=== PATIENT | male | born 1930 | race Caucasian/White ===

== ENCOUNTER 2016-11-28 19:48 | Inpatient (IN) | payer MEDICARE, MEDICAID ==
[~2016-11-28] VITALS: Ht 175.3 cm; Wt 89.8 kg
--- NOTE | 2016-11-28 19:51 | NUR ---
BB AMBULANCE FROM [facility]; [facility] AT FACILITY. PT CONGESTED ON 2LPM VIA NC . DENIES ANY PAIN. PLACED ON MONITOR. VSS.
--- NOTE | 2016-11-28 20:30 | NUR ---
LAB COLLECTED BLOOD SAMPLE SENT TO LAB.
--- NOTE | 2016-11-28 20:41 | NUR ---
URINE SAMPLE COLLECTED SENT TO LAB.
[2016-11-28 20:50] LABS: BASOPHILS % (AUTO) 0.4 % (0.0-2.0); EOSINOPHILS # (AUTO) 0.2 /CMM (0.0-0.7); EOSINOPHILS % (AUTO) 3.1 % (0.0-6.0); HEMATOCRIT 35 % (39-51); HEMOGLOBIN 11.6 g/dL (13.5-17.5); LYMPHOCYTES # (AUTO) 1.5 /CMM (0.8-4.8); LYMPHOCYTES % (AUTO) 25.9 % (20.0-44.0); MEAN CORPUSCULAR HEMOGLOBIN 31 PG (26.0-33.0); MEAN CORPUSCULAR HGB CONC 33 g/dl (31.0-36.0); MEAN CORPUSCULAR VOLUME 93 fL (80-96); MONOCYTES # (AUTO) 0.7 /CMM (0.1-1.30); NEUTROPHILS # (AUTO) 3.3 /CMM (1.8-8.9); NEUTROPHILS % (AUTO) 58.6 % (43.0-81.0); PLATELET COUNT (AUTO) 258 /CMM (150-450); RDW COEFFICIENT OF VARIATION 14.8 (11.5-15.0); RED BLOOD CELL COUNT(AUTO) 3.76 MIL/uL (4.5-6.0); WHITE BLOOD COUNT (AUTO) 5.7 K/uL (4.3-11.0)
[2016-11-28 20:58] LABS: CREATININE 1.1 mg/dL (0.6-1.3)
--- NOTE | 2016-11-28 21:00 | NUR ---
PINKY AT BEDSIDE FOR EVAL
[2016-11-28 21:04] LABS: ALBUMIN 3.1 g/dL (3.4-5.0); BILIRUBIN,TOTAL 0.2 mg/dL (0.2-1.0); TOTAL PROTEIN, SERUM 6.9 g/dL (6.4-8.2)
[2016-11-28 21:05] LABS: SALICYLATE 1.2 mg/dL (2.8-20.0)
[2016-11-28 21:27] LABS: APPEARANCE,URINE CLEAR (CLEAR); BILIRUBIN,URINE NEGATIVE (NEGATIVE); BLOOD, URINE NEGATIVE Ery/uL (NEGATIVE); COLOR,URINE YELLOW (YELLOW); KETONES,URINE NEGATIVE (NEGATIVE); LEUKOCYTE ESTERASE ,URINE NEGATIVE (NEGATIVE); NITRITE, URINE NEGATIVE (NEGATIVE); PH,URINE 5.5 (5.0-8.0); PROTEIN,URINE NEGATIVE (NEGATIVE); UGLUCOSE 3+ mg/dL (NEGATIVE); UROBILINOGEN,URINE 0.2 EU/dL (0.2)
[2016-11-28 21:30] LABS: ADD URINE CULTURE NO; BACTERIA,URINE None seen /HPF (None Seen); RBC,URINE 0-2 /HPF (0-2); SQUAMOUS EPITHELIAL CELL,UR Rare /HPF (None Seen); WBC,URINE 0-2 /HPF (0-3)
[2016-11-28 21:45] LABS: CANNABINOID, URINE NEGATIVE (NEGATIVE); PHENCYCLIDINE SCREEN,URINE NEGATIVE (NEGATIVE)
--- NOTE | 2016-11-28 21:45 | NUR ---
GAVE REPORT TO LUCRETIA COX PT GOING TO ROOM 213B
--- NOTE | 2016-11-28 22:21 | NUR ---
CALLED RT FOR BREATHING TREATMENT
[2016-11-28] MEDS ORDERED: ALBUTEROL FS 2.5 MG/0.5 ML VIAL.NEB NEB PRN (22:30)
--- NOTE | 2016-11-28 22:40 | NUR ---
XRAY AT BEDSIDE
--- NOTE | 2016-11-28 23:07 | NUR ---
REMOVE 5 LPM VIA MASK. PLACED ON ROOM AIR SATING 98%
[2016-11-29 02:00] VITALS: BP 140/73
[2016-11-29] MEDS ORDERED: ACETAMINOPHEN 325 MG TABLET PO PRN (02:00)
[2016-11-29] MEDS ORDERED: TEMAZEPAM 7.5 MG CAPSULE PO PRN (02:00)
[2016-11-29] MEDS ORDERED: LORAZEPAM 0.5 MG TABLET PO PRN (02:00)
[2016-11-29] MEDS ORDERED: MAG HYDROX/AL HYDROX/SIMETH 30 ML UDC PO PRN (02:00)
[2016-11-29] MEDS ORDERED: MAGNESIUM HYDROXIDE 30 ML UDC PO PRN (02:00)
--- NOTE | 2016-11-29 02:10 | NUR ---
ADMITTED THIS 86 Y/O MALE FROM [facility]. PT IS ON 5150 HOLD FOR GRAVELY DISABLED. PER HOLD, PATIENT STATED "I DON'T KNOW WHY I'M HERE THEY BROUGHT ME HERE". ACCORDING TO STAFF AT THE FACILITY. PATIENT HAS BEEN HYPERSEXUAL ATTEMPTED TO TOUCH STAFF INAPPROPRIATELY. WHEN STAFF INTERVENED. PATIENT BECAME PHYSICALLY AGGRESSIVE TOWARDS THEM AND UNABLE TO REDIRECT. PT UNDER DR. GAMBOA FOR PSYCH AND DR. PASTRANA FOR MEDICAL. ADMITTING DX. OF PSYCHOSIS AND MEDICAL DX. OF HTN, DM TYPE 2, GLAUCOMA, GOUT, HYPERLIPIDEMIA. UPON FACE TO FACE EVALUATION, PATIENT IS ALERT AND ORIENTED X 1, CONFUSED, DISORIENTED, DISORGANIZED. PT REFUSED TO SIGN CONSENTS FORM. SKIN/BODY ASSESSMENT DONE. NOTED ABDOMEN BRUISE, RIGHT LEG SCAB. PICTURE TAKEN, BELONGINGS CHECKED FOR CONTRABAND. NO CONTRABAND FOUND. BED IN LOW AND LOCKED POSITION, SIDERAILS UP X2, BED ALARM ON. WILL CONTINUE TO MONITOR FOR SAFETY AND BEHAVIOR [id number].
[2016-11-29 03:25] VITALS: BP 140/73
[2016-11-29] MEDS ORDERED: DONE10TA4 PO (06:30)
[2016-11-29] MEDS ORDERED: ATOR10TA PO (06:30)
[2016-11-29] MEDS ORDERED: ASPI-991 PO (06:30)
[2016-11-29] MEDS ORDERED: BRIM5DRO11 EACHEYE (06:30)
[2016-11-29] MEDS ORDERED: DOXA4TAB2 PO (06:30)
[2016-11-29] MEDS ORDERED: DOCU-170 PO (06:30)
[2016-11-29] MEDS ORDERED: PIOG45TA PO (06:30)
[2016-11-29] MEDS ORDERED: BENA20TA78 PO (06:30)
[2016-11-29] MEDS ORDERED: ALLO100T56 PO (06:30)
[2016-11-29] MEDS ORDERED: TIMO5DRO4 RIGHTEYE (06:30)
[2016-11-29] MEDS ORDERED: DORZ10DR11 EACHEYE (06:30)
[2016-11-29] MEDS ORDERED: GLYB5TAB7 PO (06:30)
[2016-11-29] MEDS ORDERED: INSU3INS6 SUBCUT (06:30)
[2016-11-29] MEDS ORDERED: HYDR12.55 PO (06:30)
[2016-11-29] MEDS ORDERED: SITA100T PO (06:30)
[2016-11-29] MEDS ORDERED: LATA2.5D2 EACHEYE (06:30)
[2016-11-29 08:00] VITALS: BP 145/63
--- NOTE | 2016-11-29 12:10 | NUR ---
GPS CUT OFF SAW OPERATOR PIPE BLANKS: MD VISIT SEEN BY DR. DE LA VEGA AT THIS TIME WITH VERBAL ORDER TO DO ACCU CHECK WITH MILD SS. ORDER CARRIED OUT AND ACKNOWLEDGED. PT HAVING LUNCH AT THIS TIME. WILL CONTINUE TO MONITOR. REMINDED DR. DE LA VEGA RE: HOME MEDS NEEDS TO BE RECONCILED.
[2016-11-29] MEDS ORDERED: DEXTROSE 50%-WATER 50 ML DISP.SYRIN IV PRN (12:30)
--- NOTE | 2016-11-29 13:34 | NUR ---
RN-CO: NOTIFIED DR CEFERINO BARTLETT TO RECONCILE HOME MEDS. DR DE LA VEGA STATED "YES".
--- NOTE | 2016-11-29 14:44 | NUR ---
Initial Discharge Plan: Patient was currently residing at [facility] [place] [address]. . SW spoke to Yoandy from the facility who stated that the facility is cautious about having the patient return because of his hyper-sexual behavior. Patient will possibly need placement. SW attempted to contact patient's family however, they were unavailable. MARC left a message with her contact information. SW will attempt again later. MARC will follow-up with MD and family regarding most appropriate discharge and will help form a safe and proper discharge.
--- NOTE | 2016-11-29 15:30 | NUR ---
gps radiography technician: notes still awaiting for dr. edmondson to reconcile the home meds. f/u made to dr. edomndson, left message via voice mail. will continue to monitor.
[2016-11-29 16:02] VITALS: BP 132/54
[2016-11-29] MEDS: TIMOLOL MAL/DORZOLAM HCL OPHTH 10 ML BOTTLE EACHEYE SCH (16:58)
[2016-11-29] MEDS ORDERED: TIMOLOL 0.5% SOLN OPHTH 5 ML BOTTLE RIGHTEYE SCH (17:00)
[2016-11-29] MEDS: BENAZEPRIL HCL 20 MG TABLET PO SCH (17:00)
[2016-11-29] MEDS: ALLOPURINOL 100 MG TABLET PO SCH (17:00)
[2016-11-29] MEDS: TIMOLOL 0.5% SOLN OPHTH 5 ML BOTTLE EACHEYE SCH (17:01)
[2016-11-29] MEDS: BLOOD SUGAR DIAGNOSTIC 1 EACH STRIP IN SCH ×2 (17:01→22:13)
[2016-11-29] MEDS: INSULIN REGULAR, HUMAN 100 UNIT/ML 3 ML VIAL SQ PRN ×2 (17:04→22:16)
[2016-11-29] MEDS: BRIMONIDINE TARTRATE OPHT SOLN 5 ML BOTTLE OP SCH (17:05)
[2016-11-29 20:00] VITALS: BP 133/77
[2016-11-29] MEDS: DIVALPROEX SODIUM 250 MG TABLET.DR PO SCH (21:35)
[2016-11-29] MEDS: LATANOPROST EYE DROP 0.005% 2.5 ML BOTTLE EACHEYE SCH (22:13)
[2016-11-29] MEDS: DONEPEZIL 5 MG TABLET PO SCH (22:13)
[2016-11-29] MEDS: ATORVASTATIN 10 MG TABLET PO SCH (22:13)
[2016-11-29] MEDS: INSULIN DETEMIR 100 UNIT/ML CARTRIDGE SQ SCH (22:14)
[2016-11-29] MEDS: QUETIAPINE FUMARATE 25 MG TABLET PO SCH (22:14)
[2016-11-30] MEDS: ALBUTEROL FS 2.5 MG/0.5 ML VIAL.NEB NEB PRN ×3 (00:33→22:00)
[2016-11-30 07:38] LABS: BASOPHILS % (AUTO) 0.3 % (0.0-2.0); EOSINOPHILS # (AUTO) 0.2 /CMM (0.0-0.7); EOSINOPHILS % (AUTO) 2.7 % (0.0-6.0); HEMATOCRIT 34 % (39-51); HEMOGLOBIN 11.3 g/dL (13.5-17.5); LYMPHOCYTES # (AUTO) 1.9 /CMM (0.8-4.8); LYMPHOCYTES % (AUTO) 25.9 % (20.0-44.0); MEAN CORPUSCULAR HEMOGLOBIN 31 PG (26.0-33.0); MEAN CORPUSCULAR HGB CONC 33 g/dl (31.0-36.0); MEAN CORPUSCULAR VOLUME 93 fL (80-96); MONOCYTES # (AUTO) 0.8 /CMM (0.1-1.30); NEUTROPHILS # (AUTO) 4.4 /CMM (1.8-8.9); NEUTROPHILS % (AUTO) 60.1 % (43.0-81.0); PLATELET COUNT (AUTO) 264 /CMM (150-450); RDW COEFFICIENT OF VARIATION 14.9 (11.5-15.0); WHITE BLOOD COUNT (AUTO) 7.4 K/uL (4.3-11.0)
[2016-11-30] MEDS: BLOOD SUGAR DIAGNOSTIC 1 EACH STRIP IN SCH ×4 (07:44→21:31)
[2016-11-30 07:55] VITALS: BP 135/60
[2016-11-30 08:09] LABS: ALBUMIN 2.9 g/dL (3.4-5.0); BILIRUBIN,TOTAL 0.3 mg/dL (0.2-1.0); POTASSIUM 3.8 mmol/L (3.5-5.1); TOTAL PROTEIN, SERUM 6.7 g/dL (6.4-8.2)
[2016-11-30] MEDS: PIOGLITAZONE HCL 15 MG TABLET PO SCH (08:50)
[2016-11-30] MEDS: DOCUSATE SODIUM 100 MG CAPSULE PO SCH (08:50)
[2016-11-30] MEDS: BENAZEPRIL HCL 20 MG TABLET PO SCH ×2 (08:51→17:57)
[2016-11-30] MEDS: HYDROCHLOROTHIAZIDE 25 MG TABLET PO SCH (08:51)
[2016-11-30] MEDS: LINAGLIPTIN 5 MG TABLET PO SCH (08:52)
[2016-11-30] MEDS: ALLOPURINOL 100 MG TABLET PO SCH ×2 (08:52→17:57)
[2016-11-30] MEDS: DOXAZOSIN MESYLATE (4 MG) 4 MG TABLET PO SCH (08:52)
[2016-11-30] MEDS: DIVALPROEX SODIUM 250 MG TABLET.DR PO SCH ×2 (08:52→21:27)
[2016-11-30] MEDS: glyBURIDE 5 MG TABLET PO SCH (08:52)
[2016-11-30] MEDS: BRIMONIDINE TARTRATE OPHT SOLN 5 ML BOTTLE OP SCH ×2 (09:01→17:59)
[2016-11-30] MEDS: TIMOLOL MAL/DORZOLAM HCL OPHTH 10 ML BOTTLE EACHEYE SCH ×2 (09:01→17:59)
[2016-11-30] MEDS: TIMOLOL 0.5% SOLN OPHTH 5 ML BOTTLE EACHEYE SCH ×2 (09:01→17:59)
[2016-11-30] MEDS: INSULIN REGULAR, HUMAN 100 UNIT/ML 3 ML VIAL SQ PRN ×3 (09:03→21:33)
[2016-11-30] MEDS: ASPIRIN EC 81 MG TABLET.DR PO SCH (09:06)
--- NOTE | 2016-11-30 10:50 | NUR ---
DR. DE LA VEGA CAME AND EXAMINED THE PT. WITH ORDERS OF ABG, CT ANGIOGRAM WITH CONTRAST, ECHOCARDIOGRAM AND O2.
--- NOTE | 2016-11-30 11:33 | NUR ---
I, DAVIN MUKHERJEE, TRIED TO TALK TO RN BUT SHE WAS NOT AVAILABLE. I WAS TOLD NURSE WILL CALL BACK REGARDING THE CT PULMONARY ANGIO.
[2016-11-30] MEDS ORDERED: IOHEXOL-350 100 ML VIAL IV ONE (15:51)
[2016-11-30] MEDS ORDERED: CT SWABBABLE VALVE TRANS SET 1 EA INFUS.SET MC ONE (15:51)
[2016-11-30] MEDS ORDERED: IV NS 0.9% 250 ML IV ONE (15:51)
[2016-11-30 16:03] VITALS: BP 117/51
[2016-11-30 20:00] VITALS: BP 130/61
[2016-11-30] MEDS: QUETIAPINE FUMARATE 25 MG TABLET PO SCH (21:29)
[2016-11-30] MEDS: ATORVASTATIN 10 MG TABLET PO SCH (21:29)
[2016-11-30] MEDS: LATANOPROST EYE DROP 0.005% 2.5 ML BOTTLE EACHEYE SCH (21:29)
[2016-11-30] MEDS: DONEPEZIL 5 MG TABLET PO SCH (21:29)
[2016-11-30] MEDS: INSULIN DETEMIR 100 UNIT/ML CARTRIDGE SQ SCH (21:32)
[2016-12-01 08:00] VITALS: BP 120/61
[2016-12-01] MEDS: glyBURIDE 5 MG TABLET PO SCH (08:48)
[2016-12-01] MEDS: DIVALPROEX SODIUM 250 MG TABLET.DR PO SCH ×2 (08:48→20:37)
[2016-12-01] MEDS: DOXAZOSIN MESYLATE (4 MG) 4 MG TABLET PO SCH (08:50)
[2016-12-01] MEDS: ASPIRIN EC 81 MG TABLET.DR PO SCH (08:50)
[2016-12-01] MEDS: ALLOPURINOL 100 MG TABLET PO SCH ×2 (08:50→16:39)
[2016-12-01] MEDS: DOCUSATE SODIUM 100 MG CAPSULE PO SCH (08:51)
[2016-12-01] MEDS: HYDROCHLOROTHIAZIDE 25 MG TABLET PO SCH (08:51)
[2016-12-01] MEDS: PIOGLITAZONE HCL 15 MG TABLET PO SCH (08:52)
[2016-12-01] MEDS: BENAZEPRIL HCL 20 MG TABLET PO SCH ×2 (08:52→16:40)
[2016-12-01] MEDS: LINAGLIPTIN 5 MG TABLET PO SCH (08:52)
[2016-12-01] MEDS: BLOOD SUGAR DIAGNOSTIC 1 EACH STRIP IN SCH ×4 (08:55→21:18)
[2016-12-01] MEDS: TIMOLOL MAL/DORZOLAM HCL OPHTH 10 ML BOTTLE EACHEYE SCH ×2 (08:56→16:41)
[2016-12-01] MEDS: BRIMONIDINE TARTRATE OPHT SOLN 5 ML BOTTLE OP SCH ×2 (08:56→16:41)
[2016-12-01] MEDS: TIMOLOL 0.5% SOLN OPHTH 5 ML BOTTLE EACHEYE SCH ×2 (08:57→16:41)
[2016-12-01] MEDS: INSULIN REGULAR, HUMAN 100 UNIT/ML 3 ML VIAL SQ PRN ×3 (12:15→21:26)
[2016-12-01 16:22] VITALS: BP 126/62
[2016-12-01 19:48] VITALS: BP 119/50
[2016-12-01] MEDS: DONEPEZIL 5 MG TABLET PO SCH (21:19)
[2016-12-01] MEDS: ATORVASTATIN 10 MG TABLET PO SCH (21:19)
[2016-12-01] MEDS: LATANOPROST EYE DROP 0.005% 2.5 ML BOTTLE EACHEYE SCH (21:19)
[2016-12-01] MEDS: QUETIAPINE FUMARATE 25 MG TABLET PO SCH (21:20)
--- NOTE | 2016-12-01 21:27 | NUR ---
GPS/RN NOTE: ACCUCHECK 187 MG/DL, 3 UNITS REG. INSULIN SC ADMINISTERED. APPLE SAUCE GIVEN.
[2016-12-01] MEDS: INSULIN DETEMIR 100 UNIT/ML CARTRIDGE SQ SCH (21:37)
[2016-12-02 08:00] VITALS: BP 138/70
[2016-12-02] MEDS: DOCUSATE SODIUM 100 MG CAPSULE PO SCH (09:10)
[2016-12-02] MEDS: BLOOD SUGAR DIAGNOSTIC 1 EACH STRIP IN SCH ×4 (09:10→22:06)
[2016-12-02] MEDS: BRIMONIDINE TARTRATE OPHT SOLN 5 ML BOTTLE OP SCH ×2 (09:10→18:14)
[2016-12-02] MEDS: TIMOLOL MAL/DORZOLAM HCL OPHTH 10 ML BOTTLE EACHEYE SCH ×2 (09:10→18:14)
[2016-12-02] MEDS: DIVALPROEX SODIUM 250 MG TABLET.DR PO SCH ×2 (09:10→21:02)
[2016-12-02] MEDS: TIMOLOL 0.5% SOLN OPHTH 5 ML BOTTLE EACHEYE SCH ×2 (09:10→18:14)
[2016-12-02] MEDS: PIOGLITAZONE HCL 15 MG TABLET PO SCH (09:11)
[2016-12-02] MEDS: glyBURIDE 5 MG TABLET PO SCH (09:11)
[2016-12-02] MEDS: ASPIRIN EC 81 MG TABLET.DR PO SCH (09:11)
[2016-12-02] MEDS: BENAZEPRIL HCL 20 MG TABLET PO SCH ×2 (09:11→18:13)
[2016-12-02] MEDS: HYDROCHLOROTHIAZIDE 25 MG TABLET PO SCH (09:12)
[2016-12-02] MEDS: LINAGLIPTIN 5 MG TABLET PO SCH (09:12)
[2016-12-02] MEDS: DOXAZOSIN MESYLATE (4 MG) 4 MG TABLET PO SCH (09:12)
[2016-12-02] MEDS: ALLOPURINOL 100 MG TABLET PO SCH ×2 (09:12→18:12)
[2016-12-02] MEDS: INSULIN REGULAR, HUMAN 100 UNIT/ML 3 ML VIAL SQ PRN ×2 (12:50→22:11)
[2016-12-02 16:00] VITALS: BP 132/64
[2016-12-02 19:52] VITALS: BP 114/65
[2016-12-02] MEDS: LATANOPROST EYE DROP 0.005% 2.5 ML BOTTLE EACHEYE SCH (22:06)
[2016-12-02] MEDS: DONEPEZIL 5 MG TABLET PO SCH (22:06)
[2016-12-02] MEDS: QUETIAPINE FUMARATE 25 MG TABLET PO SCH (22:07)
[2016-12-02] MEDS: ATORVASTATIN 10 MG TABLET PO SCH (22:07)
[2016-12-02] MEDS: INSULIN DETEMIR 100 UNIT/ML CARTRIDGE SQ SCH (22:09)
[2016-12-03] MEDS: BLOOD SUGAR DIAGNOSTIC 1 EACH STRIP IN SCH ×4 (07:54→22:06)
[2016-12-03 08:00] VITALS: BP 136/67
[2016-12-03 08:01] LABS: BASOPHILS % (AUTO) 0.3 % (0.0-2.0); EOSINOPHILS # (AUTO) 0.2 /CMM (0.0-0.7); EOSINOPHILS % (AUTO) 3.9 % (0.0-6.0); HEMATOCRIT 36 % (39-51); HEMOGLOBIN 11.7 g/dL (13.5-17.5); LYMPHOCYTES # (AUTO) 1.6 /CMM (0.8-4.8); LYMPHOCYTES % (AUTO) 26.8 % (20.0-44.0); MEAN CORPUSCULAR HEMOGLOBIN 31 PG (26.0-33.0); MEAN CORPUSCULAR HGB CONC 33 g/dl (31.0-36.0); MEAN CORPUSCULAR VOLUME 93 fL (80-96); MONOCYTES # (AUTO) 0.6 /CMM (0.1-1.30); MONOCYTES % (AUTO) 10.1 % (2.0-12.0); NEUTROPHILS # (AUTO) 3.5 /CMM (1.8-8.9); NEUTROPHILS % (AUTO) 58.9 % (43.0-81.0); PLATELET COUNT (AUTO) 241 /CMM (150-450); RDW COEFFICIENT OF VARIATION 14.8 (11.5-15.0); RED BLOOD CELL COUNT(AUTO) 3.84 MIL/uL (4.5-6.0); WHITE BLOOD COUNT (AUTO) 5.9 K/uL (4.3-11.0)
[2016-12-03 08:24] LABS: CREATININE 1.1 mg/dL (0.6-1.3); PHOSPHORUS 3.3 mg/dL (2.5-4.9); POTASSIUM 3.8 mmol/L (3.5-5.1)
[2016-12-03] MEDS: BENAZEPRIL HCL 20 MG TABLET PO SCH ×2 (09:21→18:00)
[2016-12-03] MEDS: PIOGLITAZONE HCL 15 MG TABLET PO SCH (09:21)
[2016-12-03] MEDS: DOCUSATE SODIUM 100 MG CAPSULE PO SCH (09:21)
[2016-12-03] MEDS: ASPIRIN EC 81 MG TABLET.DR PO SCH (09:21)
[2016-12-03] MEDS: DOXAZOSIN MESYLATE (4 MG) 4 MG TABLET PO SCH (09:22)
[2016-12-03] MEDS: HYDROCHLOROTHIAZIDE 25 MG TABLET PO SCH (09:22)
[2016-12-03] MEDS: ALLOPURINOL 100 MG TABLET PO SCH ×2 (09:22→18:00)
[2016-12-03] MEDS: LINAGLIPTIN 5 MG TABLET PO SCH (09:22)
[2016-12-03] MEDS: DIVALPROEX SODIUM 250 MG TABLET.DR PO SCH ×2 (09:24→21:50)
[2016-12-03] MEDS: glyBURIDE 5 MG TABLET PO SCH (09:24)
[2016-12-03] MEDS: BRIMONIDINE TARTRATE OPHT SOLN 5 ML BOTTLE OP SCH ×2 (09:27→18:03)
[2016-12-03] MEDS: TIMOLOL 0.5% SOLN OPHTH 5 ML BOTTLE EACHEYE SCH ×2 (09:27→18:03)
[2016-12-03] MEDS: TIMOLOL MAL/DORZOLAM HCL OPHTH 10 ML BOTTLE EACHEYE SCH ×2 (09:27→18:02)
[2016-12-03] MEDS: INSULIN REGULAR, HUMAN 100 UNIT/ML 3 ML VIAL SQ PRN ×3 (12:50→22:05)
--- NOTE | 2016-12-03 13:00 | NUR ---
Dejon from [place] [phone]. came to assess the patient at 1:00pm. Tawanda Mercado was able to accept the patient.
--- NOTE | 2016-12-03 15:30 | NUR ---
[employer] faxed initial review packet to Javed from [facility]. SW will follow-up.
[2016-12-03 16:00] VITALS: BP 138/62
--- NOTE | 2016-12-03 16:00 | NUR ---
Javed from [facility] notified social work faculty member that patient has been accepted to the facility.
[2016-12-03 20:00] VITALS: BP 127/58
[2016-12-03] MEDS: QUETIAPINE FUMARATE 25 MG TABLET PO SCH (21:50)
[2016-12-03] MEDS: DONEPEZIL 5 MG TABLET PO SCH (21:50)
[2016-12-03] MEDS: ATORVASTATIN 10 MG TABLET PO SCH (21:50)
[2016-12-03] MEDS: LATANOPROST EYE DROP 0.005% 2.5 ML BOTTLE EACHEYE SCH (22:03)
[2016-12-03] MEDS: INSULIN DETEMIR 100 UNIT/ML CARTRIDGE SQ SCH (22:06)
[2016-12-03] MEDS: ALBUTEROL FS 2.5 MG/0.5 ML VIAL.NEB NEB PRN (22:17)
[2016-12-04 07:14] LABS: CREATININE 0.9 mg/dL (0.6-1.3); POTASSIUM 3.7 mmol/L (3.5-5.1)
[2016-12-04 08:00] VITALS: BP 139/68
[2016-12-04] MEDS: BRIMONIDINE TARTRATE OPHT SOLN 5 ML BOTTLE OP SCH ×2 (08:31→17:45)
[2016-12-04] MEDS: TIMOLOL MAL/DORZOLAM HCL OPHTH 10 ML BOTTLE EACHEYE SCH ×2 (08:31→17:45)
[2016-12-04] MEDS: TIMOLOL 0.5% SOLN OPHTH 5 ML BOTTLE EACHEYE SCH ×2 (08:31→17:45)
[2016-12-04] MEDS: PIOGLITAZONE HCL 15 MG TABLET PO SCH ×2 (08:31→12:40)
[2016-12-04] MEDS: DOCUSATE SODIUM 100 MG CAPSULE PO SCH (08:32)
[2016-12-04] MEDS: HYDROCHLOROTHIAZIDE 25 MG TABLET PO SCH (08:36)
[2016-12-04] MEDS: DIVALPROEX SODIUM 250 MG TABLET.DR PO SCH ×2 (08:36→21:40)
[2016-12-04] MEDS: ASPIRIN EC 81 MG TABLET.DR PO SCH (08:36)
[2016-12-04] MEDS: DOXAZOSIN MESYLATE (4 MG) 4 MG TABLET PO SCH (08:37)
[2016-12-04] MEDS: BENAZEPRIL HCL 20 MG TABLET PO SCH ×2 (08:37→17:00)
[2016-12-04] MEDS: glyBURIDE 5 MG TABLET PO SCH (08:37)
[2016-12-04] MEDS: ALLOPURINOL 100 MG TABLET PO SCH ×2 (08:37→17:49)
[2016-12-04] MEDS: LINAGLIPTIN 5 MG TABLET PO SCH (08:38)
[2016-12-04] MEDS: BLOOD SUGAR DIAGNOSTIC 1 EACH STRIP IN SCH ×4 (08:38→21:41)
[2016-12-04] MEDS: INSULIN REGULAR, HUMAN 100 UNIT/ML 3 ML VIAL SQ PRN ×3 (12:46→21:44)
[2016-12-04] MEDS ORDERED: Z GUARD REMEDY 2 OZ OINT TP PRN (15:30)
[2016-12-04 16:00] VITALS: BP 110/56
--- NOTE | 2016-12-04 16:12 | NUR ---
Patient's daughter Marietta Mae is patient's personnel specialist.
--- NOTE | 2016-12-04 18:00 | NUR ---
dr. thomas, in to see pt. Addendum: 12/04/16 at 1849 by CEDRIC GARLAND RN above note incorrect.
--- NOTE | 2016-12-04 18:54 | NUR ---
dr. penaloza, in to see pt.
--- NOTE | 2016-12-04 20:10 | NUR ---
RN NOTES: PT IN BED, SLEEPING, AROUSES TO TACTILE STIMULI, ON 2L VIA NC, RESPIRATION EVEN AND UNLABORED, BERMUDIAN PEAKING A/O X1-2, ABLE TO STATE HIS NAME AND DATE, DENIES ANY PLAN OF HURTING HIMSELF, MEDICATION COMPLIANT, ON MECH SOFT DIET, ON ASPIRATION PRECAUTION, PT APPEARS CALM AND COOPERATIVE, WITH DISORGANIZED THOUGHT PROCESS, POOR CONCENTRATION AND LIMITED JUDGMENT. FREQUENT MONITORING [id number] FOR SAFETY AND BEHAVIOR.
[2016-12-04 20:33] VITALS: BP 96/52
--- NOTE | 2016-12-04 21:00 | NUR ---
RN NOTES: RECHECK PT'S VS BP 118/54 HR 80 RR 20 TEMP 98.1 SPO2 98% ON 2L VIA NC
[2016-12-04] MEDS: QUETIAPINE FUMARATE 25 MG TABLET PO SCH (21:40)
[2016-12-04] MEDS: LATANOPROST EYE DROP 0.005% 2.5 ML BOTTLE EACHEYE SCH (21:41)
[2016-12-04] MEDS: ATORVASTATIN 10 MG TABLET PO SCH (21:41)
[2016-12-04] MEDS: DONEPEZIL 5 MG TABLET PO SCH (21:41)
[2016-12-04] MEDS: INSULIN DETEMIR 100 UNIT/ML CARTRIDGE SQ SCH (21:45)
--- NOTE | 2016-12-04 21:46 | NUR ---
rn notes: checked blood sugar, reveals 234, 4units of insulin given per sliding scale,
[2016-12-05] MEDS: BLOOD SUGAR DIAGNOSTIC 1 EACH STRIP IN SCH ×4 (07:52→22:12)
[2016-12-05 08:00] VITALS: BP 142/61
[2016-12-05] MEDS: INSULIN REGULAR, HUMAN 100 UNIT/ML 3 ML VIAL SQ PRN ×4 (09:36→22:14)
[2016-12-05] MEDS: glyBURIDE 5 MG TABLET PO SCH (09:39)
[2016-12-05] MEDS: ASPIRIN EC 81 MG TABLET.DR PO SCH (09:39)
[2016-12-05] MEDS: ALLOPURINOL 100 MG TABLET PO SCH ×2 (09:39→17:14)
[2016-12-05] MEDS: DIVALPROEX SODIUM 250 MG TABLET.DR PO SCH ×2 (09:39→22:11)
[2016-12-05] MEDS: DOCUSATE SODIUM 100 MG CAPSULE PO SCH (09:39)
[2016-12-05] MEDS: DOXAZOSIN MESYLATE (4 MG) 4 MG TABLET PO SCH (09:40)
[2016-12-05] MEDS: LINAGLIPTIN 5 MG TABLET PO SCH (09:41)
[2016-12-05] MEDS: HYDROCHLOROTHIAZIDE 25 MG TABLET PO SCH (09:41)
[2016-12-05] MEDS: PIOGLITAZONE HCL 15 MG TABLET PO SCH (09:41)
[2016-12-05] MEDS: BENAZEPRIL HCL 20 MG TABLET PO SCH ×2 (09:42→17:00)
[2016-12-05] MEDS: TIMOLOL 0.5% SOLN OPHTH 5 ML BOTTLE EACHEYE SCH ×2 (09:50→17:14)
[2016-12-05] MEDS: TIMOLOL MAL/DORZOLAM HCL OPHTH 10 ML BOTTLE EACHEYE SCH ×2 (09:51→17:14)
[2016-12-05] MEDS: BRIMONIDINE TARTRATE OPHT SOLN 5 ML BOTTLE OP SCH ×2 (09:51→17:14)
[2016-12-05 16:00] VITALS: BP 105/61
[2016-12-05 20:00] VITALS: BP 99/50
[2016-12-05] MEDS: ALBUTEROL FS 2.5 MG/0.5 ML VIAL.NEB NEB PRN (21:33)
[2016-12-05] MEDS: DONEPEZIL 5 MG TABLET PO SCH (22:12)
[2016-12-05] MEDS: QUETIAPINE FUMARATE 25 MG TABLET PO SCH (22:12)
[2016-12-05] MEDS: ATORVASTATIN 10 MG TABLET PO SCH (22:12)
[2016-12-05] MEDS: LATANOPROST EYE DROP 0.005% 2.5 ML BOTTLE EACHEYE SCH (22:12)
[2016-12-05] MEDS: INSULIN DETEMIR 100 UNIT/ML CARTRIDGE SQ SCH (22:13)
[2016-12-06] MEDS: BLOOD SUGAR DIAGNOSTIC 1 EACH STRIP IN SCH ×4 (07:43→21:18)
[2016-12-06 08:00] VITALS: BP 131/57
[2016-12-06] MEDS: TIMOLOL MAL/DORZOLAM HCL OPHTH 10 ML BOTTLE EACHEYE SCH ×2 (08:50→16:41)
[2016-12-06] MEDS: TIMOLOL 0.5% SOLN OPHTH 5 ML BOTTLE EACHEYE SCH ×2 (08:51→16:41)
[2016-12-06] MEDS: DOXAZOSIN MESYLATE (4 MG) 4 MG TABLET PO SCH (08:52)
[2016-12-06] MEDS: BRIMONIDINE TARTRATE OPHT SOLN 5 ML BOTTLE OP SCH ×2 (08:52→16:42)
[2016-12-06] MEDS: ASPIRIN EC 81 MG TABLET.DR PO SCH (08:53)
[2016-12-06] MEDS: DIVALPROEX SODIUM 250 MG TABLET.DR PO SCH ×2 (08:53→21:18)
[2016-12-06] MEDS: BENAZEPRIL HCL 20 MG TABLET PO SCH ×3 (08:53→16:44)
[2016-12-06] MEDS: DOCUSATE SODIUM 100 MG CAPSULE PO SCH (08:53)
[2016-12-06] MEDS: ALLOPURINOL 100 MG TABLET PO SCH ×2 (08:53→16:42)
[2016-12-06] MEDS: glyBURIDE 5 MG TABLET PO SCH (08:57)
[2016-12-06] MEDS: LINAGLIPTIN 5 MG TABLET PO SCH (08:57)
[2016-12-06] MEDS: PIOGLITAZONE HCL 15 MG TABLET PO SCH (08:57)
[2016-12-06] MEDS: HYDROCHLOROTHIAZIDE 25 MG TABLET PO SCH (08:58)
[2016-12-06] MEDS: INSULIN REGULAR, HUMAN 100 UNIT/ML 3 ML VIAL SQ PRN ×3 (11:58→21:22)
[2016-12-06] MEDS: IPRATROPIUM NEB FS 0.5 MG/2.5 ML AMPUL.NEB NEB SCH ×4 (12:05→22:55)
[2016-12-06] MEDS: ACETYLCYSTEINE 10% SOLN 400 MG/4 ML VIAL NEB SCH ×3 (12:05→23:07)
[2016-12-06] MEDS: LEVOFLOXACIN (500MG) 500 MG TABLET PO SCH (12:08)
--- NOTE | 2016-12-06 12:47 | NUR ---
DELTA GARCIA NOTIFIED ABOUT THE CHEST X-RAY RESULT AND SAID SHE ORDER LATER.
[2016-12-06 16:00] VITALS: BP_SYST 109; BP_SYST 131; BP_DIAS 50; BP_DIAS 57
--- NOTE | 2016-12-06 19:18 | NUR ---
GPS RN NOTE, RECEIVED PATIENT AWAKE AND IN BED, NO S/S OR COMPLAINTS OF PAIN AT THIS TIME. PATIENT IS DISPLAYING NO S/S OF APPARENT DISTRESS AT THIS TIME. PATIENT HAS A ONE TO ONE SITTER FOR BEING AGGRESSIVE WITH STAFF. PATIENT HAS A ONE TO ONE SITTER BECAUSE HE IS ON O2. PATIENT BREATHING IS UNLABORED WITH EQUAL RISE AND FALL OF THE CHEST. PATIENT IS ALERT AND ORIENTED X 2 ON 2 LITERS VIA NASAL CANNULA WITH A SPO2 95%. PATIENT COMPLIANT WITH MEDICATIONS, ANXIOUS, DELUSIONAL, COOPERATIVE, CONFUSED AT TIMES, AND NEEDS REORIENTATION. PATIENT DENIES SUICIDE AND HOMICIDAL IDEATIONS AT THIS TIME. PATIENT ASSISTED WITH TURNING AND REPOSITIONING Q2HR AND PRN FOR COMFORT AND CIRCULATION. PATIENT HAS NO NEEDS AT THIS TIME. PATIENT EDUCATED ON THE USE OF THE CALL LEDBETTER. PATIENT BED SIDE RAILS UP X2 FOR SAFETY, BED IS LOCKED AND LOW WILL CONTINUE TO MONITOR AND MAINTAIN SAFETY.
[2016-12-06 20:00] VITALS: BP 104/52
[2016-12-06] MEDS: ALBUTEROL HALF STRENGTH 1.25 MG/3 ML VIAL.NEB NEB PRN (20:17)
[2016-12-06] MEDS: DONEPEZIL 5 MG TABLET PO SCH (21:18)
[2016-12-06] MEDS: ATORVASTATIN 10 MG TABLET PO SCH (21:18)
[2016-12-06] MEDS: LATANOPROST EYE DROP 0.005% 2.5 ML BOTTLE EACHEYE SCH (21:19)
[2016-12-06] MEDS: QUETIAPINE FUMARATE 25 MG TABLET PO SCH (21:21)
[2016-12-06] MEDS: INSULIN DETEMIR 100 UNIT/ML CARTRIDGE SQ SCH (21:23)
--- NOTE | 2016-12-06 21:30 | NUR ---
PERFORMED ACCU CHECK ON PATIENT WITH A BLOOD SUGAR RESULT OF 141. GAVE 2 UNITS OF REGULAR INSULIN PER SLIDING SCALE. WILL CONTINUE TO MONITOR THIS PATIENT.
[2016-12-07] MEDS: IPRATROPIUM NEB FS 0.5 MG/2.5 ML AMPUL.NEB NEB SCH ×6 (03:37→23:55)
[2016-12-07] MEDS: ACETYLCYSTEINE 10% SOLN 400 MG/4 ML VIAL NEB SCH ×3 (07:30→23:55)
[2016-12-07] MEDS: ALBUTEROL HALF STRENGTH 1.25 MG/3 ML VIAL.NEB NEB PRN ×2 (07:30→15:54)
[2016-12-07] MEDS: BLOOD SUGAR DIAGNOSTIC 1 EACH STRIP IN SCH ×4 (07:37→21:34)
[2016-12-07 08:00] VITALS: BP 147/75
[2016-12-07] MEDS: DOCUSATE SODIUM 100 MG CAPSULE PO SCH (08:52)
[2016-12-07] MEDS: BENAZEPRIL HCL 20 MG TABLET PO SCH ×2 (08:53→17:11)
[2016-12-07] MEDS: PIOGLITAZONE HCL 15 MG TABLET PO SCH (08:53)
[2016-12-07] MEDS: ASPIRIN EC 81 MG TABLET.DR PO SCH (08:53)
[2016-12-07] MEDS: DIVALPROEX SODIUM 250 MG TABLET.DR PO SCH ×2 (08:53→21:34)
[2016-12-07] MEDS: DOXAZOSIN MESYLATE (4 MG) 4 MG TABLET PO SCH (08:53)
[2016-12-07] MEDS: LINAGLIPTIN 5 MG TABLET PO SCH (08:53)
[2016-12-07] MEDS: glyBURIDE 5 MG TABLET PO SCH (08:53)
[2016-12-07] MEDS: BRIMONIDINE TARTRATE OPHT SOLN 5 ML BOTTLE OP SCH ×2 (08:54→17:38)
[2016-12-07] MEDS: TIMOLOL 0.5% SOLN OPHTH 5 ML BOTTLE EACHEYE SCH ×2 (08:54→17:38)
[2016-12-07] MEDS: HYDROCHLOROTHIAZIDE 25 MG TABLET PO SCH (08:54)
[2016-12-07] MEDS: ALLOPURINOL 100 MG TABLET PO SCH ×2 (08:54→17:11)
[2016-12-07] MEDS: TIMOLOL MAL/DORZOLAM HCL OPHTH 10 ML BOTTLE EACHEYE SCH ×2 (08:55→17:39)
[2016-12-07] MEDS: LEVOFLOXACIN (500MG) 500 MG TABLET PO SCH (12:09)
[2016-12-07] MEDS: INSULIN REGULAR, HUMAN 100 UNIT/ML 3 ML VIAL SQ PRN ×2 (12:10→17:45)
[2016-12-07] MEDS ORDERED: Lorazepam PO (13:09)
[2016-12-07] MEDS ORDERED: LATA2.5D2 EACHEYE (13:09)
[2016-12-07] MEDS ORDERED: INSU100I19 SQ (13:09)
[2016-12-07] MEDS ORDERED: LEVO500T15 PO (13:09)
[2016-12-07] MEDS ORDERED: PIOG15TA3 PO (13:09)
[2016-12-07] MEDS ORDERED: DORZ10DR13 EACHEYE (13:09)
[2016-12-07] MEDS ORDERED: TEMA7.5C PO (13:09)
[2016-12-07] MEDS ORDERED: LINA5TAB PO (13:09)
[2016-12-07] MEDS ORDERED: QUET25TA PO (13:09)
[2016-12-07] MEDS ORDERED: TIMO5DRO18 EACHEYE (13:09)
[2016-12-07 16:00] VITALS: BP 112/56
[2016-12-07 20:00] VITALS: BP 105/52
[2016-12-07] MEDS: QUETIAPINE FUMARATE 25 MG TABLET PO SCH (21:33)
[2016-12-07] MEDS: LATANOPROST EYE DROP 0.005% 2.5 ML BOTTLE EACHEYE SCH (21:34)
[2016-12-07] MEDS: ATORVASTATIN 10 MG TABLET PO SCH (21:34)
[2016-12-07] MEDS: DONEPEZIL 5 MG TABLET PO SCH (21:36)
[2016-12-07] MEDS: INSULIN DETEMIR 100 UNIT/ML CARTRIDGE SQ SCH (21:51)
[2016-12-08] MEDS: IPRATROPIUM NEB FS 0.5 MG/2.5 ML AMPUL.NEB NEB SCH ×2 (02:50→08:46)
--- NOTE | 2016-12-08 02:51 | NUR ---
0330 RESP TX DEFERRED. PT ASLEEP AND IN NO RESP DISTRESS NOTED. RN NOTIFIED. WILL CALL IF NEEDED Addendum: 12/08/16 at 0252 by DOUG MAR RT Amended: Links added.
[2016-12-08 08:00] VITALS: BP 124/56
[2016-12-08] MEDS: BLOOD SUGAR DIAGNOSTIC 1 EACH STRIP IN SCH ×3 (08:27→22:00)
[2016-12-08] MEDS: DOCUSATE SODIUM 100 MG CAPSULE PO SCH (08:28)
[2016-12-08] MEDS: DIVALPROEX SODIUM 250 MG TABLET.DR PO SCH (08:28)
[2016-12-08] MEDS: LINAGLIPTIN 5 MG TABLET PO SCH (08:28)
[2016-12-08] MEDS: PIOGLITAZONE HCL 15 MG TABLET PO SCH (08:28)
[2016-12-08] MEDS: glyBURIDE 5 MG TABLET PO SCH (08:29)
[2016-12-08] MEDS: ALLOPURINOL 100 MG TABLET PO SCH (08:29)
[2016-12-08] MEDS: DOXAZOSIN MESYLATE (4 MG) 4 MG TABLET PO SCH (08:29)
[2016-12-08] MEDS: HYDROCHLOROTHIAZIDE 25 MG TABLET PO SCH (08:30)
[2016-12-08] MEDS: ASPIRIN EC 81 MG TABLET.DR PO SCH (08:30)
[2016-12-08] MEDS: BENAZEPRIL HCL 20 MG TABLET PO SCH (08:31)
[2016-12-08] MEDS: TIMOLOL MAL/DORZOLAM HCL OPHTH 10 ML BOTTLE EACHEYE SCH (08:36)
[2016-12-08] MEDS: BRIMONIDINE TARTRATE OPHT SOLN 5 ML BOTTLE OP SCH (08:36)
[2016-12-08] MEDS: TIMOLOL 0.5% SOLN OPHTH 5 ML BOTTLE EACHEYE SCH (08:36)
[2016-12-08] MEDS: ACETYLCYSTEINE 10% SOLN 400 MG/4 ML VIAL NEB SCH ×3 (08:46→23:26)
[2016-12-08] MEDS: ALBUTEROL HALF STRENGTH 1.25 MG/3 ML VIAL.NEB NEB PRN (08:46)
--- NOTE | 2016-12-08 11:15 | NUR ---
DISCHARGE NOTES/ PATIENT DISCHARGE AT THIS TIME TO MED/SURGE FOR FOLLOW UP PER MEDICAL DOCTOR CEMENT MASON MAINTENANCE, BY DX OF PNEUMONIA. PT A/O X2/3, ON O2-2L, CITIZEN OF [place] SPEAKER, MED COMPLIANT, V/S STABLE, NEED CHIEF CREATIVE OFFICER ADL'S. PATIENT DENIED SI/HI/AVH. MED RECONCILIATION AND DISCHARGEE ORDER REVIEWED AND EXPLAINED TO. BELONGING RETURNED BACK TO THE PATIENT. PATIENT TRANSFER BY BED TO THE MED /SURGE. BEDSIDE REPORT GIVEN MED/SURGE NURSE RN. RN VERBALIZED UNDERSTANDING. PATIENT REFUSED SIGN PAPERWORK, AND PICTURE. FAMILY NOTIFIED.
--- NOTE | 2016-12-08 12:00 | NUR ---
PT. ADMITTED FROM GPS UNIT BY BED. PT. AWAKE, ALERT AND CONFUSED. SITTER AT THE BEDSIDE. SKIN IS INTACT. DENIED PAIN AND SOB. O2@ 2L VIA NC. NOTIFIED TO RADHA GAYTAN TO GET A ORDER. GIVE UNIT ORIENTATION. SIDE RAILS UP. FALL RISK. CALL LIGHT WITHIN REACH. MONITOR CLOSELY.
[2016-12-08] MEDS ORDERED: ACETAMINOPHEN 325 MG TABLET PO PRN (13:00)
[2016-12-08] MEDS ORDERED: ONDANSETRON HCL/PF 4 MG/2 ML VIAL IVP PRN (13:00)
[2016-12-08] MEDS ORDERED: Z GUARD REMEDY 2 OZ OINT TP PRN (13:00)
[2016-12-08] MEDS ORDERED: MAG HYDROX/AL HYDROX/SIMETH 30 ML UDC PO PRN (13:00)
[2016-12-08] MEDS ORDERED: IPRATROPIUM NEB FS 0.5 MG/2.5 ML AMPUL.NEB NEB PRN (13:00)
[2016-12-08] MEDS ORDERED: ALBUTEROL FS 2.5 MG/0.5 ML VIAL.NEB NEB PRN (13:00)
[2016-12-08] MEDS ORDERED: ZOLPIDEM TARTRATE 5 MG TABLET PO PRN (13:00)
[2016-12-08] MEDS ORDERED: HYDROCODONE/APAP 5/325MG 1 EACH TABLET PO PRN (13:00)
[2016-12-08] MEDS ORDERED: IV NS 0.9% 250 ML IV ONE (13:38)
[2016-12-08] MEDS ORDERED: SECONDARY IV SET 1 EA INFUS.SET MC ONE (13:39)
[2016-12-08] MEDS ORDERED: IV SET PRIMARY PUMP SET 1 EA INFUS.SET MC ONE (13:39)
[2016-12-08] MEDS: LEVOFLOXACIN 500 MG /D5W 100ML 500 MG in PREMIX 1 EA IV SCH (13:43)
[2016-12-08 13:58] LABS: CALCIUM, SERUM 8.8 mg/dL (8.5-10.1); CREATININE 1.3 mg/dL (0.6-1.3)
[2016-12-08] MEDS ORDERED: DEXTROSE 50%-WATER 50 ML DISP.SYRIN IV PRN (15:30)
[2016-12-08] MEDS: INSULIN REGULAR, HUMAN 100 UNIT/ML 3 ML VIAL SQ PRN ×2 (17:29→22:03)
--- NOTE | 2016-12-08 19:00 | NUR ---
CLOSING SHIFT PT. AWAKE, ALERT AND CONFUSED. NO SOB ON O2@2L VIA NC. SITTER AT THE BEDSIDE. CALL LIGHT WITHIN REACH. SIDE RAILS UP. MONITOR CLOSELY.
--- NOTE | 2016-12-08 19:30 | NUR ---
MS/RN OPENING NOTES PT AWAKE, A/OX2, ON 2LPM VIA NC, BREATHING EVEN AND UNLABORED, NO S/S OF DISTRESS NOTED. DENIES PAIN. IV TO RIGHT FA PATENT AND INTACT. BED IN LOW/LOCKED POSITION WITH CALL LIGHT IN REACH. SITTER AT BEDSIDE. BED RAILS UPX3. WILL CONTINUE TO MONITOR
[2016-12-08 20:00] VITALS: BP 128/60
--- NOTE | 2016-12-08 22:03 | NUR ---
MS/RN NOTES BLOOD SUGAR=95, NO INSULIN COVERAGE PER SLIDING SCALE. SNACKS PROVIDED AT BEDSIDE.
[2016-12-09] MEDS: BLOOD SUGAR DIAGNOSTIC 1 EACH STRIP IN SCH ×4 (06:43→21:30)
--- NOTE | 2016-12-09 06:46 | NUR ---
MS/RN NOTES BLOOD SUGAR 105, NO INSULIN COVERAGE PER SLIDING SCALE.
[2016-12-09] MEDS: INSULIN REGULAR, HUMAN 100 UNIT/ML 3 ML VIAL SQ PRN ×4 (06:47→21:28)
--- NOTE | 2016-12-09 07:10 | NUR ---
ms rn initial notes Received patient in bed, awake, head of bed elevated, no SOB or distress noted. on 02 @ 3lpm via NC and tolerated well. Alert and Oriented x 2, Sudanese speaking only. IV intact on the Right forearm, patent. Sitter at bedside for constant monitoring. Kept patient clean and comfortable in bed, call light with in patient reach, will continue to monitor accordingly.
--- NOTE | 2016-12-09 07:23 | NUR ---
MS/RN CLOSING NOTES PT ASLEEP, EASILY AROUSABLE TO NAME. ON 2LPM O2 VIA NC, NO S/S OF DISTRESS. BREATHING EVEN AND UNLABORED. NO COMPLAINTS OF PAIN. IV TO RIGHT FA PATENT AND INTACT. SITTER AT BEDSIDE. BED IN LOW/LOCKED POSITION WITH CALL LIGHT IN REACH, BED ALARM ON. BED RAILS UPX3. MADE PT COMFORTABLE THROUGHOUT SHIFT. ON 5250 WHICH EXPIRES 12/15/2016. ENDORSED TO AM SHIFT DULCE MARIA.
[2016-12-09] MEDS: PANTOPRAZOLE 40 MG TABLET.DR PO SCH (07:36)
[2016-12-09 08:00] VITALS: BP_SYST 128; BP_SYST 141; BP_DIAS 60; BP_DIAS 71
[2016-12-09] MEDS: ACETYLCYSTEINE 10% SOLN 400 MG/4 ML VIAL NEB SCH ×2 (08:14→15:46)
[2016-12-09 08:15] LABS: BASOPHILS % (AUTO) 0.3 % (0.0-2.0); EOSINOPHILS # (AUTO) 0.3 /CMM (0.0-0.7); EOSINOPHILS % (AUTO) 3.6 % (0.0-6.0); HEMATOCRIT 35 % (39-51); HEMOGLOBIN 11.5 g/dL (13.5-17.5); LYMPHOCYTES # (AUTO) 1.5 /CMM (0.8-4.8); LYMPHOCYTES % (AUTO) 20.8 % (20.0-44.0); MEAN CORPUSCULAR HEMOGLOBIN 31 PG (26.0-33.0); MEAN CORPUSCULAR HGB CONC 33 g/dl (31.0-36.0); MEAN CORPUSCULAR VOLUME 93 fL (80-96); MONOCYTES # (AUTO) 0.7 /CMM (0.1-1.30); MONOCYTES % (AUTO) 9.2 % (2.0-12.0); NEUTROPHILS # (AUTO) 4.8 /CMM (1.8-8.9); NEUTROPHILS % (AUTO) 66.1 % (43.0-81.0); PLATELET COUNT (AUTO) 265 /CMM (150-450); RDW COEFFICIENT OF VARIATION 14.6 (11.5-15.0); RED BLOOD CELL COUNT(AUTO) 3.73 MIL/uL (4.5-6.0); WHITE BLOOD COUNT (AUTO) 7.2 K/uL (4.3-11.0)
[2016-12-09 08:31] LABS: CALCIUM, SERUM 8.9 mg/dL (8.5-10.1); CREATININE 1.1 mg/dL (0.6-1.3); MAGNESIUM 2.1 mg/dL (1.8-2.4); PHOSPHORUS 2.9 mg/dL (2.5-4.9); POTASSIUM 3.7 mmol/L (3.5-5.1)
[2016-12-09] MEDS: methylPREDNISolone SOD SUCC 125 MG/2ML VIAL IV SCH ×2 (14:32→16:21)
[2016-12-09] MEDS: LEVOFLOXACIN 500 MG /D5W 100ML 500 MG in PREMIX 1 EA IV SCH (14:32)
[2016-12-09 15:07] LABS: ABG BASE EXCESS 4.8 mmol/L; ABG OXYGEN SATURATION 94.8 % (92.0-98.5); ABG PCO2 49.1 mmHg (35.0-45.0); ABG PH 7.409 (7.350-7.450); ABG TOTAL HEMOGLOBIN 11.7 G/dL (13.5-18.0); AaDO2 63.7 mmHg; COHb 0.6 % (0.5-1.5); MetHb 0.9 % (0.0-1.5); O2Hb 93.4 % (94.0-97.0); SITE, ABG Right Radial; VENT MODE, BG nasal cannula
--- NOTE | 2016-12-09 15:20 | NUR ---
ABG REPORTED TO DR. JIMENEZ. NOT CHANGES TO OXYGEN. PER PATIENT DOES NOT NEED CHEST PT AT THIS TIME. ORDER CANCELLED PER 'S ORDER.
[2016-12-09 16:00] VITALS: BP 110/52
[2016-12-09] MEDS: BOOST GLUCOSE CONTROL VANILLA 237 ML BOX PO SCH (16:21)
--- NOTE | 2016-12-09 19:32 | NUR ---
ms rn closing notes All needs provided, attended, and anticipated. Kept patient clean and comfortable in bed, call light with in patient reach, will continue to monitor accordingly. Endorsed to next shift RN to continue care.
[2016-12-09 20:00] VITALS: BP 117/55
[2016-12-09] MEDS: IPRATROPIUM NEB FS 0.5 MG/2.5 ML AMPUL.NEB NEB SCH (20:15)
[2016-12-09] MEDS: ALBUTEROL FS 2.5 MG/0.5 ML VIAL.NEB NEB SCH (20:16)
[2016-12-09] MEDS ORDERED: ENOXAPARIN SODIUM 40 MG/0.4 ML DISP.SYRIN SQ SCH (21:00)
[2016-12-10] MEDS: ACETYLCYSTEINE 10% SOLN 400 MG/4 ML VIAL NEB SCH ×2 (00:03→07:14)
[2016-12-10] MEDS: ALBUTEROL FS 2.5 MG/0.5 ML VIAL.NEB NEB SCH ×2 (01:45→07:14)
[2016-12-10] MEDS: IPRATROPIUM NEB FS 0.5 MG/2.5 ML AMPUL.NEB NEB SCH ×2 (01:46→07:15)
--- NOTE | 2016-12-10 07:15 | NUR ---
ms rn initial notes Received patient in bed, awake, head of bed elevated, no SOB or distress noted. on 02 @ 2lpm via NC and tolerated well. IV intact and patent heplock only. Sitter at bedside for constant monitoring. Kept patient clean and comfortable in bed, call light with in patient reach, will continue to monitor accordingly.
[2016-12-10] MEDS: BLOOD SUGAR DIAGNOSTIC 1 EACH STRIP IN SCH ×2 (07:18→12:00)
[2016-12-10] MEDS: INSULIN REGULAR, HUMAN 100 UNIT/ML 3 ML VIAL SQ PRN ×2 (07:19→12:03)
[2016-12-10] MEDS: PANTOPRAZOLE 40 MG TABLET.DR PO SCH (07:47)
[2016-12-10 08:00] VITALS: BP 128/70
[2016-12-10] MEDS: BOOST GLUCOSE CONTROL VANILLA 237 ML BOX PO SCH (08:03)
[2016-12-10] MEDS: methylPREDNISolone SOD SUCC 125 MG/2ML VIAL IV SCH (08:34)
--- NOTE | 2016-12-10 12:33 | NUR ---
MS HEALTH PSYCHOLOGIST NOTES Called GPS department and spoke to Jennifer (RN), report and discharge instructions given. Hold original paper send it with the patient and discharge papers. Discontinued IV and pressured applied to prevent bleeding. Skin re-assessment done and pictures taken and filed in the patient chart. Pneumonia not given. Flu vaccine out of season. No complaint of pain or discomfort noted nor chest pain. Vital signs checked and recorded. Patient left in stable condition with 02 @ 2lpm via NC saturation of 98%. Patient left the department via wheelchair accompanied by Tito BAH MD and charge nurse aware.
[2016-12-10] MEDS ORDERED: DIVALPROEX SODIUM 125 MG CAP.SPRINK PO SCH (21:00)
[2016-12-10] MEDS ORDERED: QUETIAPINE FUMARATE 25 MG TABLET PO SCH (22:00)
[2016-12-18] MEDS ORDERED: FURO40TA5 PO (10:19)
[2016-12-18] MEDS ORDERED: LEVO750T46 PO (10:19)
[2016-12-18] MEDS ORDERED: PRED50TA PO (10:19)
[2016-12-18] MEDS ORDERED: PRED20TA PO ×2 (10:19)
[2016-12-18] MEDS ORDERED: PRED10TA PO (10:19)
== END 2016-12-10 12:25 | DRG 189 ==
LOC: ER 19:54 → GPS 21:52 → UNDOADMIN 21:52 → ER 11-29 02:03 → MED 11-29 02:05 → UNDODISIN 12-08 11:14
PROVIDERS: ADMIT Family Medicine
DX: J96.01 Acute respiratory failure with hypoxia (principal); J15.9 Unspecified bacterial pneumonia; E44.0 Moderate protein-calorie malnutrition; F03.91 Unspecified dementia, unspecified severity, with behavioral disturbance; E87.0 Hyperosmolality and hypernatremia; J44.0 Chronic obstructive pulmonary disease with (acute) lower respiratory infection; J44.1 Chronic obstructive pulmonary disease with (acute) exacerbation; I50.32 Chronic diastolic (congestive) heart failure; J98.11 Atelectasis; F39 Unspecified mood [affective] disorder; F29 Unspecified psychosis not due to a substance or known physiological condition; E11.65 Type 2 diabetes mellitus with hyperglycemia; D64.9 Anemia, unspecified; M10.9 Gout, unspecified; J40 Bronchitis, not specified as acute or chronic; I11.0 Hypertensive heart disease with heart failure; E66.9 Obesity, unspecified; Y95 Nosocomial condition; Z87.891 Personal history of nicotine dependence
CPT/HCPCS: 36415; 36600; 71010-TC; 80048-TC; 80053-TC; 80061-TC; 80076-TC; 80305; 81000-TC; 82803-TC; 82962-TC; 83735-TC; 83880; 84100-TC; 85025-TC; 87081-TC; 92611-TC; 93307-TC; 94799-TC; 97001-TC; 97116-TC; 97530-TC; A4216; A4606; G0480; G6039-TC; J1650; J1815; J1956; J2930; J7050; Q9967; Z7610

== ENCOUNTER 2016-12-10 12:50 | Inpatient (IN) | payer MEDICARE, MEDICAID ==
[~2016-12-10] VITALS: Ht 170.2 cm; Wt 83.5 kg
[~2016-12-10 12:50] MED LIST: ALLO100T56 PO; ASPI-991 PO; ATOR10TA PO; BENA20TA78 PO; BRIM5DRO11 EACHEYE; DOCU-170 PO; DORZ10DR13 EACHEYE; DOXA4TAB2 PO; GLYB5TAB7 PO; INSU100I19 SQ; LATA2.5D2 EACHEYE; LEVO500T15 PO; LINA5TAB PO; Lorazepam PO; PIOG15TA3 PO; QUET25TA PO; TEMA7.5C PO; TIMO5DRO18 EACHEYE
[2016-12-10 13:00] VITALS: BP 133/56
--- NOTE | 2016-12-10 13:00 | NUR ---
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 NGUYEN, BOTH MD AWARE OF NEW ADMISSION CONTRABAND CHECK , PT REORIENTED TO UNIT POLICE AND CONTRABAND CHECKS, ESCORTED PT AROUND THE UNIT. PROVIDED PT RIGHT BOOKLET. DISCUSS MEAL TIMES AND FRESH AIR BREAKS. ALL PAPERWORK AND COMPUTER DOCUMENTATION IS COMPLETE. WILL ENDORSE TO INCOMING NURSE TO DOUBLE CHECK ALL PAPERWORK AND COMPUTER DOCUMENTATION. WILL CONTINUE TO MONITOR FOR SAFETY AND BEHAVIOR.
[2016-12-10] MEDS ORDERED: LORAZEPAM 0.5 MG TABLET PO PRN (13:30)
[2016-12-10] MEDS ORDERED: MAGNESIUM HYDROXIDE 30 ML UDC PO PRN (13:30)
[2016-12-10] MEDS ORDERED: ACETAMINOPHEN 325 MG TABLET PO PRN (13:30)
[2016-12-10] MEDS ORDERED: TEMAZEPAM 7.5 MG CAPSULE PO PRN (13:30)
[2016-12-10] MEDS ORDERED: MAG HYDROX/AL HYDROX/SIMETH 30 ML UDC PO PRN (13:30)
[2016-12-10] MEDS ORDERED: Z GUARD REMEDY 2 OZ OINT TP PRN (15:00)
[2016-12-10 16:00] VITALS: BP 133/54
--- NOTE | 2016-12-10 18:41 | NUR ---
RN-CO: CALLED DR GAMBOA REGARDING THE CONSENT FOR SEROQUEL AND DEPAKOTE.
[2016-12-10 20:18] VITALS: BP 130/55
[2016-12-10] MEDS: DIVALPROEX SODIUM 125 MG CAP.SPRINK PO SCH (21:50)
[2016-12-10] MEDS: QUETIAPINE FUMARATE 25 MG TABLET PO SCH (21:51)
[2016-12-11 07:52] LABS: ALBUMIN 2.8 g/dL (3.4-5.0); BILIRUBIN,TOTAL 0.2 mg/dL (0.2-1.0); CALCIUM, SERUM 9.3 mg/dL (8.5-10.1); CREATININE 1.2 mg/dL (0.6-1.3); POTASSIUM 3.7 mmol/L (3.5-5.1); TOTAL PROTEIN, SERUM 6.7 g/dL (6.4-8.2)
[2016-12-11 08:00] VITALS: BP 153/70
[2016-12-11] MEDS: BLOOD SUGAR DIAGNOSTIC 1 EACH STRIP VI SCH ×4 (08:00→21:26)
[2016-12-11] MEDS ORDERED: DEXTROSE 50%-WATER 50 ML DISP.SYRIN IV PRN ×2 (08:00→17:30)
[2016-12-11] MEDS: DIVALPROEX SODIUM 125 MG CAP.SPRINK PO SCH ×2 (08:06→21:03)
[2016-12-11] MEDS: Z GUARD REMEDY 2 OZ OINT TP SCH (08:49)
[2016-12-11] MEDS: INSULIN REGULAR, HUMAN 100 UNIT/ML 3 ML VIAL SQ PRN ×3 (09:03→16:58)
--- NOTE | 2016-12-11 09:03 | NUR ---
[id number]: BLOOD SUGAR IS 290 MG/DL AND GAVE 9 UNITS OF REGULAR INSULIN.
--- NOTE | 2016-12-11 11:00 | NUR ---
[id number]: PT IS OBSERVED ANXIOUS, RESTLESS, GUARDED. PT IS COMPLIANT WITH MEDICATIONS. PT PARTICIPATED IN ACTIVITIES. PT IS ABLE TO FOLLOW DIRECTIONS AND CUES. PT IS ENGAGED IN CONVERSATION WITH PEERS IN THE DAYROOM. ENCOURAGE PT TO VERBALIZE EMOTIONS AND CONCERNS. PROVIDE A CALM AND QUIET ENVIRONMENT TO PROMOTE PT TO PARTICIPATE IN ACTIVITIES.
--- NOTE | 2016-12-11 11:54 | NUR ---
I have reviewed this patients psychosocial dated 11/29/16 and I can attest to the accuracy of the information therein. There have been no changes since his last assessment. Patient is oriented to self and place. Patient appears calm and was sitting in the activity room. Patient's mood and affect are euthymic. Pt. denies suicidal/homicidal ideations. Patient denies visual/auditory hallucinations.
--- NOTE | 2016-12-11 12:01 | NUR ---
Initial Discharge Plan: Patient will be returning back to [facility] [address] [place] [address]. [place] [address]. . print room worker spoke to patient's daughter Marietta Mae ([phone]) who wants patient to return to [facility]. print room worker will follow-up with Md, family, and patient and will help form a safe and proper discharge.
--- NOTE | 2016-12-11 12:13 | NUR ---
[id number]: BLOOD SUGAR IS 304 MG/SL AND GAVE 12 UNITS OF REGULAR INSULIN.
--- NOTE | 2016-12-11 12:29 | NUR ---
[id number]: NOTIFIED DR. YAO ABOUT LAB RESULTS FOR 12-11-16: CO2= 35, BUN= 28, HEMOGLOBIN A1C= 8.2, ALBUMIN= 2.8. DR. YAO ORDERED ARTIFICIAL TEARS Q8 HOURS PRN FOR DRY EYES.
[2016-12-11] MEDS ORDERED: POLYVINYL ALCOHOL 15 ML BOTTLE EACHEYE PRN (12:30)
[2016-12-11 16:00] VITALS: BP 125/75
[2016-12-11] MEDS: TIMOLOL MAL/DORZOLAM HCL OPHTH 10 ML BOTTLE EACHEYE SCH (17:00)
[2016-12-11] MEDS ORDERED: TIMOLOL 0.5% SOLN OPHTH 5 ML BOTTLE RIGHTEYE SCH (17:00)
[2016-12-11] MEDS ORDERED: *INSULIN REGULAR(HUMULIN R)HUM 100 UNIT/ML VIAL SQ PRN (17:30)
[2016-12-11] MEDS ORDERED: INSULIN REGULAR, HUMAN 100 UNIT/ML 3 ML VIAL SQ PRN (17:30)
[2016-12-11] MEDS ORDERED: BLOOD SUGAR DIAGNOSTIC 1 EACH STRIP VI SCH (17:30)
[2016-12-11] MEDS: ALLOPURINOL 100 MG TABLET PO SCH (17:31)
[2016-12-11] MEDS: BENAZEPRIL HCL 20 MG TABLET PO SCH (17:32)
[2016-12-11] MEDS: glyBURIDE 5 MG TABLET PO SCH (17:35)
[2016-12-11 20:49] VITALS: BP 104/81
[2016-12-11] MEDS: BRIMONIDINE TARTRATE OPHT SOLN 5 ML BOTTLE OP SCH (21:02)
[2016-12-11] MEDS: ATORVASTATIN 10 MG TABLET PO SCH (21:02)
[2016-12-11] MEDS: LATANOPROST EYE DROP 0.005% 2.5 ML BOTTLE EACHEYE SCH (21:02)
[2016-12-11] MEDS: QUETIAPINE FUMARATE 25 MG TABLET PO SCH (21:04)
[2016-12-11] MEDS: INSULIN DETEMIR 100 UNIT/ML CARTRIDGE SQ SCH (21:25)
[2016-12-11] MEDS: *INSULIN REGULAR(HUMULIN R)HUM 100 UNIT/ML VIAL SQ PRN (21:25)
[2016-12-11] MEDS ORDERED: ALBUTEROL FS 2.5 MG/0.5 ML VIAL.NEB NEB PRN (21:30)
[2016-12-11] MEDS ORDERED: ALBUTEROL FS 2.5 MG/0.5 ML VIAL.NEB ONE (21:54)
[2016-12-11] MEDS ORDERED: IPRATROPIUM NEB FS 0.5 MG/2.5 ML AMPUL.NEB ONE (21:55)
[2016-12-11] MEDS: IPRATROPIUM NEB FS 0.5 MG/2.5 ML AMPUL.NEB NEB SCH (22:01)
[2016-12-12] MEDS: IPRATROPIUM NEB FS 0.5 MG/2.5 ML AMPUL.NEB NEB SCH ×4 (01:30→19:35)
[2016-12-12] MEDS: BRIMONIDINE TARTRATE OPHT SOLN 5 ML BOTTLE OP SCH ×3 (04:53→21:00)
[2016-12-12 06:42] LABS: BASOPHILS % (AUTO) 0.2 % (0.0-2.0); EOSINOPHILS # (AUTO) 0.1 /CMM (0.0-0.7); EOSINOPHILS % (AUTO) 0.5 % (0.0-6.0); HEMATOCRIT 36 % (39-51); HEMOGLOBIN 12.1 g/dL (13.5-17.5); LYMPHOCYTES # (AUTO) 1.6 /CMM (0.8-4.8); LYMPHOCYTES % (AUTO) 11.1 % (20.0-44.0); MEAN CORPUSCULAR HEMOGLOBIN 31 PG (26.0-33.0); MEAN CORPUSCULAR HGB CONC 33 g/dl (31.0-36.0); MEAN CORPUSCULAR VOLUME 93 fL (80-96); MONOCYTES # (AUTO) 0.6 /CMM (0.1-1.30); MONOCYTES % (AUTO) 4.3 % (2.0-12.0); NEUTROPHILS # (AUTO) 12.3 /CMM (1.8-8.9); NEUTROPHILS % (AUTO) 83.9 % (43.0-81.0); PLATELET COUNT (AUTO) 289 /CMM (150-450); RDW COEFFICIENT OF VARIATION 14.7 (11.5-15.0); RED BLOOD CELL COUNT(AUTO) 3.92 MIL/uL (4.5-6.0); WHITE BLOOD COUNT (AUTO) 14.7 K/uL (4.3-11.0)
[2016-12-12 07:06] LABS: CALCIUM, SERUM 8.8 mg/dL (8.5-10.1); CREATININE 1.1 mg/dL (0.6-1.3); MAGNESIUM 1.9 mg/dL (1.8-2.4); PHOSPHORUS 2.8 mg/dL (2.5-4.9); POTASSIUM 3.4 mmol/L (3.5-5.1)
[2016-12-12] MEDS: BLOOD SUGAR DIAGNOSTIC 1 EACH STRIP VI SCH ×4 (07:56→21:46)
[2016-12-12] MEDS: *INSULIN REGULAR(HUMULIN R)HUM 100 UNIT/ML VIAL SQ PRN ×2 (07:58→21:55)
--- NOTE | 2016-12-12 08:00 | NUR ---
GPS/RN SCANNED HS BARCODE BY ACCIDENT ADMINISTERED REGULAR INSULIN PER A/C SLIDING SCALE, WITNESSED BY RN.
[2016-12-12 08:17] VITALS: BP 100/50
[2016-12-12] MEDS: DOXAZOSIN MESYLATE (4 MG) 4 MG TABLET PO SCH (09:00)
[2016-12-12] MEDS: BENAZEPRIL HCL 20 MG TABLET PO SCH ×2 (09:00→17:00)
[2016-12-12] MEDS: ALLOPURINOL 100 MG TABLET PO SCH ×2 (09:06→17:30)
[2016-12-12] MEDS: PIOGLITAZONE HCL 15 MG TABLET PO SCH (09:07)
[2016-12-12] MEDS: ASPIRIN EC 81 MG TABLET.DR PO SCH (09:08)
[2016-12-12] MEDS: DOCUSATE SODIUM 100 MG CAPSULE PO SCH (09:09)
[2016-12-12] MEDS: LINAGLIPTIN 5 MG TABLET PO SCH (09:09)
[2016-12-12] MEDS: glyBURIDE 5 MG TABLET PO SCH (09:09)
[2016-12-12] MEDS: DIVALPROEX SODIUM 125 MG CAP.SPRINK PO SCH ×2 (09:11→22:00)
[2016-12-12] MEDS: TIMOLOL MAL/DORZOLAM HCL OPHTH 10 ML BOTTLE EACHEYE SCH ×2 (09:13→17:51)
[2016-12-12] MEDS: Z GUARD REMEDY 2 OZ OINT TP SCH (09:18)
[2016-12-12] MEDS ORDERED: POTASSIUM CHLORIDE 20 MEQ TAB.PRT.SR PO ONE ×2 (12:00→15:00)
[2016-12-12] MEDS: INSULIN REGULAR, HUMAN 100 UNIT/ML 3 ML VIAL SQ PRN ×2 (12:46→17:47)
[2016-12-12] MEDS: ALBUTEROL FS 2.5 MG/0.5 ML VIAL.NEB NEB SCH ×2 (13:35→19:35)
[2016-12-12 14:59] LABS: IRON, SERUM 19 ug/dl (50-175); TOTAL IRON BINDING CAPACITY 212 ug/dl (250-450)
[2016-12-12 15:51] VITALS: BP 102/53
--- NOTE | 2016-12-12 19:16 | NUR ---
GPS/RN NOTE: PATIENT RESTING IN BED, ON 02 2L VIA NC. HAS 1:1 SITTER FOR SAFETY. NO APPARENT DISTRESS NOTED.
[2016-12-12] MEDS ORDERED: SUCCINYLCHOLINE CHLORIDE 20 MG/ML VIAL ONE (19:23)
[2016-12-12 20:00] VITALS: BP 119/55
[2016-12-12] MEDS: LATANOPROST EYE DROP 0.005% 2.5 ML BOTTLE EACHEYE SCH (21:50)
--- NOTE | 2016-12-12 21:56 | NUR ---
GPS/RN NOTE: ACCUCHECK 194 MG/DL, 3 UNITS REG. INSULIN SC ADMINISTERED
[2016-12-12] MEDS: ATORVASTATIN 10 MG TABLET PO SCH (22:00)
[2016-12-12] MEDS: QUETIAPINE FUMARATE 25 MG TABLET PO SCH (22:01)
[2016-12-12] MEDS: INSULIN DETEMIR 100 UNIT/ML CARTRIDGE SQ SCH (22:02)
[2016-12-13] MEDS: ALBUTEROL FS 2.5 MG/0.5 ML VIAL.NEB NEB SCH ×4 (01:27→19:46)
[2016-12-13] MEDS: IPRATROPIUM NEB FS 0.5 MG/2.5 ML AMPUL.NEB NEB SCH ×4 (01:27→19:46)
[2016-12-13] MEDS: BRIMONIDINE TARTRATE OPHT SOLN 5 ML BOTTLE OP SCH ×4 (05:00→22:07)
--- NOTE | 2016-12-13 05:37 | NUR ---
GPS/RN NOTE: BRIMONIDINE TARTRATE OPTHAL WILBER. NOT AVAILABLE
[2016-12-13 08:06] VITALS: BP 118/54
[2016-12-13] MEDS: BLOOD SUGAR DIAGNOSTIC 1 EACH STRIP VI SCH ×4 (08:08→22:05)
[2016-12-13] MEDS: INSULIN REGULAR, HUMAN 100 UNIT/ML 3 ML VIAL SQ PRN ×3 (08:09→17:50)
[2016-12-13] MEDS: DOXAZOSIN MESYLATE (4 MG) 4 MG TABLET PO SCH (08:16)
[2016-12-13] MEDS: BENAZEPRIL HCL 20 MG TABLET PO SCH ×2 (08:17→17:25)
[2016-12-13] MEDS: Z GUARD REMEDY 2 OZ OINT TP SCH (08:17)
[2016-12-13] MEDS: DOCUSATE SODIUM 100 MG CAPSULE PO SCH (08:20)
[2016-12-13] MEDS: PIOGLITAZONE HCL 15 MG TABLET PO SCH (08:20)
[2016-12-13] MEDS: glyBURIDE 5 MG TABLET PO SCH (08:20)
[2016-12-13] MEDS: LINAGLIPTIN 5 MG TABLET PO SCH (08:20)
[2016-12-13] MEDS: ASPIRIN EC 81 MG TABLET.DR PO SCH (08:21)
[2016-12-13] MEDS: DIVALPROEX SODIUM 125 MG CAP.SPRINK PO SCH ×2 (08:21→21:04)
[2016-12-13] MEDS: ALLOPURINOL 100 MG TABLET PO SCH ×2 (08:21→17:25)
[2016-12-13] MEDS: TIMOLOL MAL/DORZOLAM HCL OPHTH 10 ML BOTTLE EACHEYE SCH ×2 (08:22→17:26)
--- NOTE | 2016-12-13 12:09 | NUR ---
community health outreach worker spoke to patient's daughter ericka Mae to inform her that patient will be discharged on Friday December 16, 2016 back to [facility] & [address] [address] . Patient's daughter was agreeable with the discharge plan. community health outreach worker will follow-up on Friday.
[2016-12-13 15:35] VITALS: BP 121/61
--- NOTE | 2016-12-13 19:41 | NUR ---
GPS/RN NOTE: PATIENT RESTING IN BED, AWAKE, ALERT, NO ACUTE RESPIRATORY DISTRESS NOTED AT THIS TIME. ON 2L O2 VIA NASAL CONCENTRATOR SATURATING 92%, TEMP. 97.9, 98, 19, 116/54. HAS 1:1 SITTER AT THE BEDSIDE FOR SAFETY.
[2016-12-13 20:00] VITALS: BP 116/54
--- NOTE | 2016-12-13 20:38 | NUR ---
GPS/RN NOTE: PATIENT O2 SAT ON 2L 90%
--- NOTE | 2016-12-13 21:04 | NUR ---
GPS/RN NOTE: BRIMONIDINE TARTRATE 0.2% EYE GTT NOT AVAILABLE. NOTIFIED PHARMACIST, WILL SEND TONIGHT
[2016-12-13] MEDS: LATANOPROST EYE DROP 0.005% 2.5 ML BOTTLE EACHEYE SCH (22:04)
[2016-12-13] MEDS: ATORVASTATIN 10 MG TABLET PO SCH (22:05)
[2016-12-13] MEDS: QUETIAPINE FUMARATE 25 MG TABLET PO SCH (22:05)
[2016-12-13] MEDS: *INSULIN REGULAR(HUMULIN R)HUM 100 UNIT/ML VIAL SQ PRN (22:19)
[2016-12-13] MEDS: INSULIN DETEMIR 100 UNIT/ML CARTRIDGE SQ SCH (22:40)
--- NOTE | 2016-12-13 22:40 | NUR ---
GPS/RN NOTE: ACCUCHECK 262 MG/DL, 6 UNITS REGULAR INSULIN SC ADMINISTERED. HS SNACKS GIVEN, JELLO AND APPLE JUICE 120 ML.
--- NOTE | 2016-12-14 01:19 | NUR ---
GPS/RN NOTE: PATIENT SATURATION ON 5L VIA O2 CONCENTRATOR IS 88%. RESP. THERAPIST CAME IN, CHANGE O2 CONCENTRATOR TO REGULAR O2 TANK.
[2016-12-14] MEDS: ALBUTEROL FS 2.5 MG/0.5 ML VIAL.NEB NEB SCH ×2 (01:30→08:05)
[2016-12-14] MEDS: IPRATROPIUM NEB FS 0.5 MG/2.5 ML AMPUL.NEB NEB SCH ×2 (01:30→08:05)
[2016-12-14] MEDS: BRIMONIDINE TARTRATE OPHT SOLN 5 ML BOTTLE OP SCH (06:04)
[2016-12-14 07:38] LABS: BASOPHILS % (AUTO) 0.3 % (0.0-2.0); EOSINOPHILS # (AUTO) 0.1 /CMM (0.0-0.7); EOSINOPHILS % (AUTO) 1.1 % (0.0-6.0); HEMATOCRIT 36 % (39-51); HEMOGLOBIN 11.8 g/dL (13.5-17.5); LYMPHOCYTES # (AUTO) 1.8 /CMM (0.8-4.8); LYMPHOCYTES % (AUTO) 19.6 % (20.0-44.0); MEAN CORPUSCULAR HEMOGLOBIN 31 PG (26.0-33.0); MEAN CORPUSCULAR HGB CONC 33 g/dl (31.0-36.0); MEAN CORPUSCULAR VOLUME 92 fL (80-96); MONOCYTES # (AUTO) 0.9 /CMM (0.1-1.30); MONOCYTES % (AUTO) 10.2 % (2.0-12.0); NEUTROPHILS # (AUTO) 6.4 /CMM (1.8-8.9); NEUTROPHILS % (AUTO) 68.8 % (43.0-81.0); PLATELET COUNT (AUTO) 287 /CMM (150-450); RDW COEFFICIENT OF VARIATION 14.9 (11.5-15.0); RED BLOOD CELL COUNT(AUTO) 3.86 MIL/uL (4.5-6.0); WHITE BLOOD COUNT (AUTO) 9.2 K/uL (4.3-11.0)
[2016-12-14] MEDS: BLOOD SUGAR DIAGNOSTIC 1 EACH STRIP VI SCH (07:43)
[2016-12-14 08:00] VITALS: BP 143/66
[2016-12-14 08:03] LABS: CALCIUM, SERUM 8.9 mg/dL (8.5-10.1); PHOSPHORUS 2.8 mg/dL (2.5-4.9); POTASSIUM 3.5 mmol/L (3.5-5.1)
[2016-12-14] MEDS: DOCUSATE SODIUM 100 MG CAPSULE PO SCH (09:13)
[2016-12-14] MEDS: DIVALPROEX SODIUM 125 MG CAP.SPRINK PO SCH (09:13)
[2016-12-14] MEDS: PIOGLITAZONE HCL 15 MG TABLET PO SCH (09:14)
[2016-12-14] MEDS: LINAGLIPTIN 5 MG TABLET PO SCH (09:14)
[2016-12-14] MEDS: ALLOPURINOL 100 MG TABLET PO SCH (09:14)
[2016-12-14] MEDS: BENAZEPRIL HCL 20 MG TABLET PO SCH (09:14)
[2016-12-14 09:15] VITALS: BP 143/66
[2016-12-14] MEDS: DOXAZOSIN MESYLATE (4 MG) 4 MG TABLET PO SCH (09:15)
[2016-12-14] MEDS: glyBURIDE 5 MG TABLET PO SCH (09:15)
[2016-12-14] MEDS: ASPIRIN EC 81 MG TABLET.DR PO SCH (09:15)
[2016-12-14] MEDS: Z GUARD REMEDY 2 OZ OINT TP SCH (09:16)
[2016-12-14] MEDS: TIMOLOL MAL/DORZOLAM HCL OPHTH 10 ML BOTTLE EACHEYE SCH (09:59)
[2016-12-14] MEDS ORDERED: methylPREDNISolone SOD SUCC 40 MG/ML VIAL IV SCH (10:00)
[2016-12-14] MEDS ORDERED: GUAIFENESIN/CODEINE 10 ML UDC PO PRN (10:00)
[2016-12-14] MEDS ORDERED: LEVOFLOXACIN 750 MG /D5W 150ML 750 MG in PREMIX 1 EA IV SCH (10:00)
--- NOTE | 2016-12-14 10:03 | NUR ---
DR. YAO CAME IN THE UNIT AND EXAMINED THE PT. AND WITH ORDERS AND ORDERED PT. [facility] BLOCK MADE AWARE OF THE TRANSFER AND ORDERED TO D/C PT. TO MED-SURG AND CONTINUE ON HOLD AND AND TO CONTINUE SAME MEDS.
--- NOTE | 2016-12-14 10:23 | NUR ---
MARIELA SOL THE IS AWARE OF THE TRANSFER TO MED- SURG.
--- NOTE | 2016-12-14 10:30 | NUR ---
DISCHARGE NOTED/ PATIENT D/C AT THIS TIME FROM [facility] TO MED/SURGE BY MEDICAL MD NAJMA SAAB CHANGE OF CONDITION FOR DX. OF COPD DECOMPENSATED. PATIENT A/O X1 /2, CONFUSED, DENIED SI/HI/AVH AT THIS SHUKRI. PATIENT ON O2 -6L,WITH MASK. BELONGING RETURNED BACK TO THE PATIENT. TRANSPORTED PATIENT BY BED TO MED/SURGE ROOM 316 BED B. BEDSIDE REPORT GIVEN RN NAME COLEMAN. RN VERBALIZED UNDERSTANDING. FAMILY NOTIFIED.
[2016-12-14] MEDS ORDERED: GUAI10SY3 PO (12:44)
[2016-12-14] MEDS ORDERED: ACET-868 PO (12:44)
[2016-12-14] MEDS ORDERED: MAGN400O6 PO (12:44)
[2016-12-14] MEDS ORDERED: INSU100V3 SQ (12:44)
[2016-12-14] MEDS ORDERED: MAG30ORA PO (12:44)
[2016-12-14] MEDS ORDERED: ALBU2.5V13 IH (12:44)
[2016-12-14] MEDS ORDERED: IPRA0.2S9 IH (12:44)
[2016-12-14] MEDS ORDERED: LINA5TAB PO (12:44)
[2016-12-14] MEDS ORDERED: LORA0.5T PO (12:44)
[2016-12-14] MEDS ORDERED: LATA2.5D2 EACHEYE (12:44)
[2016-12-14] MEDS ORDERED: DIVA125T3 PO (12:44)
[2016-12-14] MEDS ORDERED: DEXT50DI8 IV (12:44)
[2016-12-14] MEDS ORDERED: DEXT1DRO3 EACHEYE (12:44)
[2016-12-14] MEDS ORDERED: INSU100I19 SQ (12:44)
[2016-12-14] MEDS ORDERED: BLOO-668 IN (12:44)
[2016-12-14] MEDS ORDERED: [UNRECOGNIZED DRUG - CODE] IV (12:46)
[2016-12-14] MEDS ORDERED: LEVO750P3 IV (12:48)
== END 2016-12-14 10:42 | disposition short-term general hospital (02) | DRG 885 ==
LOC: GPS 12:50
PROVIDERS: ADMIT Psychiatry & Neurology Psychiatry; ATTEND Internal Medicine
DX: F39 Unspecified mood [affective] disorder (principal); F03.91 Unspecified dementia, unspecified severity, with behavioral disturbance; E44.0 Moderate protein-calorie malnutrition; J98.11 Atelectasis; I10 Essential (primary) hypertension; E11.9 Type 2 diabetes mellitus without complications; F29 Unspecified psychosis not due to a substance or known physiological condition; M10.9 Gout, unspecified; D64.9 Anemia, unspecified
CPT/HCPCS: 31720; 36415; 71010-TC; 80048-TC; 80053-TC; 82962-TC; 83540-TC; 83735-TC; 84100-TC; 85025-TC; 87040-TC; 87081-TC; 94799-TC; 97001-TC; A4216; J0330; J1815; J1956; J2920

== ENCOUNTER 2016-12-14 11:28 | Inpatient (IN) | payer MEDICARE, MEDICAID ==
[~2016-12-14] VITALS: Ht 170.2 cm; Wt 83.5 kg
--- NOTE | 2016-12-14 11:00 | NUR ---
MS RN NOTES RECEIVED PATIENT FROM GPS AOX3. WITH ADM DX OF COPD, WITH O2 VIA FACE MASK @ 5LPM. WITH SITTER AT BEDSIDE. VITAL CHECKED AND RECORDED. DR. YAO MADE AWARE FOR PENDING ADMISSION ORDERS. BELONGING AT BEDSIDE. CALL LIGHT WITHIN REACH. WILL CONTINUE TO MONITOR.
[2016-12-14] MEDS ORDERED: LINA5TAB PO (12:44)
[2016-12-14] MEDS ORDERED: ACET-868 PO (12:44)
[2016-12-14] MEDS ORDERED: GUAI10SY3 PO (12:44)
[2016-12-14] MEDS ORDERED: INSU100I19 SQ (12:44)
[2016-12-14] MEDS ORDERED: DEXT50DI8 IV (12:44)
[2016-12-14] MEDS ORDERED: LORA0.5T PO (12:44)
[2016-12-14] MEDS ORDERED: BLOO-668 IN (12:44)
[2016-12-14] MEDS ORDERED: LATA2.5D2 EACHEYE (12:44)
[2016-12-14] MEDS ORDERED: INSU100V3 SQ (12:44)
[2016-12-14] MEDS ORDERED: MAGN400O6 PO (12:44)
[2016-12-14] MEDS ORDERED: IPRA0.2S9 IH (12:44)
[2016-12-14] MEDS ORDERED: DIVA125T3 PO (12:44)
[2016-12-14] MEDS ORDERED: MAG30ORA PO (12:44)
[2016-12-14] MEDS ORDERED: ALBU2.5V13 IH (12:44)
[2016-12-14] MEDS ORDERED: DEXT1DRO3 EACHEYE (12:44)
[2016-12-14] MEDS ORDERED: [UNRECOGNIZED DRUG - CODE] IV (12:46)
[2016-12-14] MEDS ORDERED: LEVO750P3 IV (12:48)
[2016-12-14] MEDS ORDERED: ONDANSETRON HCL/PF 4 MG/2 ML VIAL IVP PRN (13:00)
[2016-12-14] MEDS ORDERED: DEXTROSE 50%-WATER 50 ML DISP.SYRIN IV PRN ×2 (13:00→13:30)
[2016-12-14] MEDS ORDERED: BRIMONIDINE TARTRATE OPHT SOLN 5 ML BOTTLE EACHEYE SCH (13:00)
[2016-12-14] MEDS ORDERED: LORAZEPAM 0.5 MG TABLET PO PRN (13:00)
[2016-12-14] MEDS ORDERED: ACETAMINOPHEN 325 MG TABLET PO PRN (13:00)
[2016-12-14] MEDS ORDERED: INSULIN REGULAR, HUMAN 100 UNIT/ML 3 ML VIAL SQ PRN (13:00)
[2016-12-14] MEDS ORDERED: MAGNESIUM HYDROXIDE 30 ML UDC PO PRN (13:00)
[2016-12-14] MEDS ORDERED: MAG HYDROX/AL HYDROX/SIMETH 30 ML UDC PO PRN (13:00)
--- NOTE | 2016-12-14 13:00 | NUR ---
MS RN NOTES MEDS GIVEN ORDERED. PIV INSERTED ON HIS LH # 22. WITH GOOD BLOOD RETURN.
[2016-12-14] MEDS: methylPREDNISolone SOD SUCC 125 MG/2ML VIAL IV SCH ×2 (13:45→17:28)
[2016-12-14] MEDS: GUAIFENESIN LA 600 MG TABLET.SA PO SCH ×2 (13:45→21:08)
[2016-12-14] MEDS: PANTOPRAZOLE 40 MG TABLET.DR PO SCH (13:45)
[2016-12-14 13:59] LABS: ABG BASE EXCESS 6.2 mmol/L; ABG OXYGEN SATURATION 91.7 % (92.0-98.5); ABG PCO2 52.5 mmHg (35.0-45.0); ABG PH 7.405 (7.350-7.450); ABG PO2 64.1 mmHg (75.0-100.0); ABG TOTAL HEMOGLOBIN 11.9 G/dL (13.5-18.0); COHb 0.4 % (0.5-1.5); MetHb 0.5 % (0.0-1.5); O2Hb 90.9 % (94.0-97.0); SITE, ABG Right Brachial; VENT MODE, BG SIMPLE MASK
--- NOTE | 2016-12-14 14:05 | NUR ---
MS RN NOTES ABG RESULT RELATED TO DR. YAO. AWAITING FOR ORDERS.
[2016-12-14 14:11] VITALS: BP 135/61
[2016-12-14] MEDS: IPRATROPIUM NEB FS 0.5 MG/2.5 ML AMPUL.NEB NEB SCH ×2 (14:14→20:48)
[2016-12-14] MEDS: ALBUTEROL FS 2.5 MG/3 ML VIAL.NEB NEB SCH ×2 (14:14→20:47)
--- NOTE | 2016-12-14 14:15 | NUR ---
MS RN NOTES DR. YAO CALLED WITH NO NEW ORDERS AT THIS TIME. WILL CONTINUE TO MONITOR PATIENT. WITH O2 AT 2 LPM VIA NC. O2 SAT 94%. NO SOB OR ANY RESPIRATORY DISTRESS NOTED.
[2016-12-14] MEDS ORDERED: SECONDARY IV SET 1 EA INFUS.SET MC ONE (15:13)
[2016-12-14] MEDS ORDERED: IV SET PRIMARY PUMP SET 1 EA INFUS.SET MC ONE (15:13)
[2016-12-14] MEDS ORDERED: IV NS 0.9% 250 ML IV ONE (15:31)
[2016-12-14] MEDS: LEVOFLOXACIN 750 MG /D5W 150ML 750 MG in PREMIX 1 EA IV SCH (15:32)
[2016-12-14 16:00] VITALS: BP 108/42
[2016-12-14 16:48] LABS: APPEARANCE,URINE CLEAR (CLEAR); BILIRUBIN,URINE NEGATIVE (NEGATIVE); BLOOD, URINE NEGATIVE Ery/uL (NEGATIVE); COLOR,URINE DARK YELLO (YELLOW); KETONES,URINE 1+ (NEGATIVE); LEUKOCYTE ESTERASE ,URINE NEGATIVE (NEGATIVE); NITRITE, URINE NEGATIVE (NEGATIVE); PROTEIN,URINE NEGATIVE (NEGATIVE); UGLUCOSE NEGATIVE (NEGATIVE); UROBILINOGEN,URINE 0.2 EU/dL (0.2)
[2016-12-14] MEDS: BENAZEPRIL HCL 20 MG TABLET PO SCH (17:00)
[2016-12-14 17:03] LABS: ADD URINE CULTURE NO; BACTERIA,URINE Rare /HPF (None Seen); RBC,URINE 0-2 /HPF (0-2); WBC,URINE 0-2 /HPF (0-3)
[2016-12-14 17:04] LABS: SQUAMOUS EPITHELIAL CELL,UR Rare /HPF (None Seen)
[2016-12-14] MEDS: BLOOD SUGAR DIAGNOSTIC 1 EACH STRIP IN SCH ×2 (17:27→21:06)
[2016-12-14] MEDS: glyBURIDE 5 MG TABLET PO SCH ×2 (17:28→21:07)
[2016-12-14] MEDS: TIMOLOL MAL/DORZOLAM HCL OPHTH 10 ML BOTTLE EACHEYE SCH (17:28)
[2016-12-14] MEDS: ALLOPURINOL 100 MG TABLET PO SCH (17:29)
[2016-12-14] MEDS ORDERED: BLOOD SUGAR DIAGNOSTIC 1 EACH STRIP IN SCH (17:30)
[2016-12-14] MEDS: INSULIN REGULAR, HUMAN 100 UNIT/ML 3 ML VIAL SQ PRN ×2 (17:35→21:23)
--- NOTE | 2016-12-14 19:00 | NUR ---
MS RN NOTES REMAIN STABLE NO SOB OR RESP. DISTRESS NOTED. ENDORSED TO INCOMING SHIFT FOR CONTINUITY OF CARE.
--- NOTE | 2016-12-14 19:35 | NUR ---
MS RN OPENING NOTES: PATIENT IN BED, AOX2, ON O2 AT 2 LPM VIA NC, BREATHING AT RATE OF 21 LPM FOR FULL MINUTE, BREATH SOUNDS DIMINISHED, NO WHEEZING NOTED AT THIS TIME. O2 SAT AT LOW 80S, PLACED PATIENT BACK ON O2 VIA SIMPLE FACE MASK AND MAINTAINED HOB ELEVATED. INFORMED RT TO GIVE SCHEDULED BREATHING TREATMENT. PIV OVER L HAND G 22 INTACT AND PATENT TO FLUSH. WITH SITTER AT BEDSIDE. PROVIDED FOR COMFORT AND SAFETY. WILL MONITOR SAFELY.
[2016-12-14 20:00] VITALS: BP 100/69
--- NOTE | 2016-12-14 20:08 | NUR ---
RN NOTES: RECHECKED ON PATIENT. ON FACE MASK AT 5 LPM, O2 SAT ON CONTINUOUS MONITORING, NOW AT 92%. BREATHING EVEN AND UNLABORED AT RATE OF 20 PER MINUTE. PATIENT ASLEEP AT THIS TIME. WILL CONT TO MONITOR.
--- NOTE | 2016-12-14 20:51 | NUR ---
RN NOTES: PATIENT'S O2 SAT NOW AT 96%. REDUCED O2 DELIVERY TO 4 LPM VIA FACE MASK.
[2016-12-14] MEDS: DIVALPROEX SODIUM 125 MG TABLET.DR PO SCH (21:07)
[2016-12-14] MEDS: LATANOPROST EYE DROP 0.005% 2.5 ML BOTTLE EACHEYE SCH (21:08)
[2016-12-14] MEDS: ATORVASTATIN 10 MG TABLET PO SCH (21:08)
[2016-12-14] MEDS: BRIMONIDINE TARTRATE OPHT SOLN 5 ML BOTTLE EACHEYE SCH (21:10)
--- NOTE | 2016-12-14 21:20 | NUR ---
RN NOTES: PATIENT'S O2 SAT AT 96% AFTER BREATHING TREATMENT. ABLE TO COUGH. SUCTIONED SECRETIONS. WILL CONT TO MONITOR.
[2016-12-14] MEDS: INSULIN DETEMIR 100 UNIT/ML CARTRIDGE SQ SCH (21:22)
[2016-12-14 22:00] VITALS: BP 100/69
[2016-12-14] MEDS ORDERED: QUETIAPINE FUMARATE 25 MG TABLET PO SCH (22:00)
[2016-12-15] VITALS: BP 106/53
[2016-12-15] MEDS: GUAIFENESIN/CODEINE 10 ML UDC PO PRN ×2 (01:01→05:04)
[2016-12-15] MEDS: ALBUTEROL FS 2.5 MG/3 ML VIAL.NEB NEB SCH ×4 (01:17→19:36)
[2016-12-15] MEDS: IPRATROPIUM NEB FS 0.5 MG/2.5 ML AMPUL.NEB NEB SCH ×4 (01:17→19:36)
--- NOTE | 2016-12-15 04:00 | NUR ---
RN NOTES: PATIENT NOTED TO BE COUGHING, AND APPEARS TO HAVE DIFFICULTY CLEARING SECRETIONS. DEEP SUCTIONING OF NASOPHARYNGEAL SECRETIONS DONE. MAINTAINED ON O2 AT 3 LPM VIA SIMPLE MASK. ATTEMPTED TO WEAN PATIENT TO NASAL CANNULA, BUT O2 SAT DECREASES TO LOW 80S. PATIENT NOTED TO BE A MOUTH BREATHER. RT AWARE. PLACED PATIENT BACK TO SIMPLE FACE MASK AT 3 LPM, O2 SAT MAINTAINED AT 94%. WILL CONT TO MONITOR.
[2016-12-15] MEDS: BRIMONIDINE TARTRATE OPHT SOLN 5 ML BOTTLE EACHEYE SCH ×3 (05:03→22:00)
[2016-12-15] MEDS: BLOOD SUGAR DIAGNOSTIC 1 EACH STRIP IN SCH ×4 (06:42→22:00)
[2016-12-15] MEDS: glyBURIDE 5 MG TABLET PO SCH ×4 (06:44→22:15)
[2016-12-15] MEDS: INSULIN REGULAR, HUMAN 100 UNIT/ML 3 ML VIAL SQ PRN ×5 (07:13→22:20)
--- NOTE | 2016-12-15 07:15 | NUR ---
MS RN INITIAL NOTES REPORT RECEIVED AT THE BEDSIDE. PATIENT IS RESTING COMFORTABLY IN BED. NO SOB OR DISTRESS NOTED AT THIS TIME. PATIENT DENIES PAIN. BED IN A LOW POSITION, CALL LIGHT WITHIN PATIENT REACH. WILL CONTINUE TO MONITOR.
--- NOTE | 2016-12-15 07:18 | NUR ---
RN NOTES: DR YAO PAGEEmily FOR PT'S BS CHECKED INITIALLY AT 423 MG/DL. 10 UNITS REGULAR INSULIN SQ ALREADY ADMINISTERED.
[2016-12-15 07:25] LABS: HEMATOCRIT 34 % (39-51); HEMOGLOBIN 11.1 g/dL (13.5-17.5); LYMPHOCYTES # (AUTO) 0.9 /CMM (0.8-4.8); LYMPHOCYTES % (AUTO) 6.5 % (20.0-44.0); MEAN CORPUSCULAR HEMOGLOBIN 31 PG (26.0-33.0); MEAN CORPUSCULAR HGB CONC 33 g/dl (31.0-36.0); MEAN CORPUSCULAR VOLUME 93 fL (80-96); MONOCYTES # (AUTO) 0.5 /CMM (0.1-1.30); MONOCYTES % (AUTO) 3.4 % (2.0-12.0); NEUTROPHILS # (AUTO) 12.6 /CMM (1.8-8.9); NEUTROPHILS % (AUTO) 90.1 % (43.0-81.0); PLATELET COUNT (AUTO) 307 /CMM (150-450); RDW COEFFICIENT OF VARIATION 14.7 (11.5-15.0); RED BLOOD CELL COUNT(AUTO) 3.63 MIL/uL (4.5-6.0)
--- NOTE | 2016-12-15 07:26 | NUR ---
MS RN CLOSING NOTES: PATIENT IN BED, AOX3, ON O2 AT 3 LPM VIA SIMPLE FACE MASK, APPEARS CALM AND COMFORTABLE. DENIES ANY PAIN OR DIFFICULTY BREATHING, HOWEVER, O2 SAT DECREASES TO 84-86 % WHEN SWITCHED TO NASAL CANNULA PATIENT WAS NOTED TO BE BREATHING THROUGH MOUTH. DUE MEDS GIVEN. MORNING CARE RENDERED. SUCTIONING DONE PRN. BLOOD SUGAR CHECKED AT 432 MG/DL, ADMINISTERED [address] YAO MADE AWARE RE BS, NO ORDERS GIVEN AT THIS TIME. PROVIDED FOR COMFORT AND SAFETY, WITH SITTER AT BEDSIDE. WILL ENDORSE TO AM RN FOR DULCE MARIA.
[2016-12-15 07:42] LABS: ALBUMIN 2.2 g/dL (3.4-5.0); BILIRUBIN,TOTAL 0.3 mg/dL (0.2-1.0); CALCIUM, SERUM 8.5 mg/dL (8.5-10.1); CREATININE 1.5 mg/dL (0.6-1.3); MAGNESIUM 2.3 mg/dL (1.8-2.4); PHOSPHORUS 3.4 mg/dL (2.5-4.9); POTASSIUM 4.6 mmol/L (3.5-5.1); TOTAL PROTEIN, SERUM 6.3 g/dL (6.4-8.2)
[2016-12-15 08:00] VITALS: BP 121/61
--- NOTE | 2016-12-15 08:06 | NUR ---
MS RN NOTES CONTACTED DR YAO BLOOD GLUCOSE IS STILL >400 AFTER 10U INSULIN AND 30MINS. MD ORDERED 5U INSULIN NOW AND LANTUS 20U DAILY. WILL PLACE ORDERS.
[2016-12-15] MEDS ORDERED: INSULIN DETEMIR 100 UNIT/ML CARTRIDGE SQ ONE (08:30)
[2016-12-15] MEDS: TIMOLOL MAL/DORZOLAM HCL OPHTH 10 ML BOTTLE EACHEYE SCH ×2 (08:42→17:05)
[2016-12-15] MEDS: methylPREDNISolone SOD SUCC 125 MG/2ML VIAL IV SCH ×3 (08:42→17:07)
[2016-12-15] MEDS: BENAZEPRIL HCL 20 MG TABLET PO SCH ×2 (08:43→17:00)
[2016-12-15] MEDS: PANTOPRAZOLE 40 MG TABLET.DR PO SCH (08:43)
[2016-12-15] MEDS: DOXAZOSIN MESYLATE (4 MG) 4 MG TABLET PO SCH (08:43)
[2016-12-15] MEDS: ASPIRIN EC 81 MG TABLET.DR PO SCH (08:43)
[2016-12-15] MEDS: DIVALPROEX SODIUM 125 MG TABLET.DR PO SCH ×2 (08:43→21:59)
[2016-12-15] MEDS: GUAIFENESIN LA 600 MG TABLET.SA PO SCH ×2 (08:43→21:59)
[2016-12-15] MEDS: ALLOPURINOL 100 MG TABLET PO SCH ×2 (08:43→17:07)
[2016-12-15] MEDS: DOCUSATE SODIUM 100 MG CAPSULE PO SCH (08:43)
[2016-12-15] MEDS: PIOGLITAZONE HCL 15 MG TABLET PO SCH (08:44)
[2016-12-15] MEDS ORDERED: FUROSEMIDE 40 MG/4 ML VIAL IV ONE (09:00)
--- NOTE | 2016-12-15 09:17 | NUR ---
MS RN NOTES INFORMED MD OF REPEAT GLUCOSE READING OF 414. STATES THIS IF FINE FOR NOW. NO NEW ORDERS. RECHECK BEFORE LUNCH AGAIN AND LET THE INSULINS HAVE TIME TO WORK.
[2016-12-15] MEDS: LEVOFLOXACIN 750 MG /D5W 150ML 750 MG in PREMIX 1 EA IV SCH (13:37)
[2016-12-15 16:00] VITALS: BP_SYST 112; BP_SYST 98; BP_DIAS 53; BP_DIAS 55
--- NOTE | 2016-12-15 19:30 | NUR ---
MS RN OPENING NOTES: PATIENT IN BED, AOX3, ON O2 AT 3 LPM VIA NC. BREATHING EVEN AT RATE OF 21 PER MINUTE. BREATH SOUNDS DIMINISHED AT BASES, SLIGHT RALES HEARD. APPEARS CALM AND IN NO DISTRESS. PIV OVER L HAND G 22 INTACT AND PATENT TO FLUSH. PROVIDED FOR COMFORT AND SAFETY. HOB ELEVATED. SITTER AT BEDSIDE. WILL CONT TO MONITOR CLOSELY FOR RESPIRATORY DISTRESS.
--- NOTE | 2016-12-15 19:40 | NUR ---
MS RN CLOSING NOTES NO SIGNIFICANT CHANGES IN PATIENT CONDITION THROUGHOUT THE SHIFT. NO SOB OR DISTRESS NOTED AT THIS TIME. PATIENT DENIES PAIN. BED IN A LOW POSITION, CALL LIGHT WITHIN PATIENT REACH. ENDORSED FOR DULCE MARIA.
[2016-12-15 20:00] VITALS: BP 113/49
[2016-12-15] MEDS: ATORVASTATIN 10 MG TABLET PO SCH (21:59)
[2016-12-15] MEDS: LATANOPROST EYE DROP 0.005% 2.5 ML BOTTLE EACHEYE SCH (22:00)
[2016-12-15] MEDS ORDERED: INSULIN DETEMIR 100 UNIT/ML CARTRIDGE SQ SCH (22:00)
[2016-12-15] MEDS: INSULIN DETEMIR 100 UNIT/ML CARTRIDGE SQ SCH (22:22)
--- NOTE | 2016-12-15 23:39 | NUR ---
RN NOTES: PATIENT WAS NOTED TO HAVE RALES. NASOPHARYNGEAL AND ORAL SUCTIONING DONE. O2 SAT CURRENTLY AT 93% ON O2 AT 3 LPM. WILL CONT TO MONITOR.
[2016-12-16] VITALS: BP 111/55
[2016-12-16] MEDS: IPRATROPIUM NEB FS 0.5 MG/2.5 ML AMPUL.NEB NEB SCH ×4 (01:11→20:32)
[2016-12-16] MEDS: ALBUTEROL FS 2.5 MG/3 ML VIAL.NEB NEB SCH ×4 (01:11→20:31)
[2016-12-16] MEDS: BRIMONIDINE TARTRATE OPHT SOLN 5 ML BOTTLE EACHEYE SCH ×3 (05:12→21:07)
[2016-12-16] MEDS: BLOOD SUGAR DIAGNOSTIC 1 EACH STRIP IN SCH ×2 (06:56→12:23)
[2016-12-16] MEDS: glyBURIDE 5 MG TABLET PO SCH ×4 (06:59→21:05)
--- NOTE | 2016-12-16 07:00 | NUR ---
RN NOTES: PATIENT IN BED, AOX3, ON O2 AT 3 LPM VIA NC. STILL NOTED TO HAVE RALES UPON AUSCULTATION. SUCTIONING PRN DONE. PATIENT REFUSED NASOPHARYNGEAL SUCTIONING THIS AM, BUT ALLOWED FOR ORAL SUCTIONING. BS CHECKED AT 260 MG/DL, COVERED WITH 6 UNITS INSULIN. NO ACUTE CHANGE IN CONDITION NOTED. WILL ENDORSE TO AM RN FOR DULCE MARIA.
[2016-12-16] MEDS: INSULIN REGULAR, HUMAN 100 UNIT/ML 3 ML VIAL SQ PRN ×3 (07:07→17:07)
[2016-12-16 07:46] LABS: HEMATOCRIT 34 % (39-51); HEMOGLOBIN 11.2 g/dL (13.5-17.5); LYMPHOCYTES # (AUTO) 1.3 /CMM (0.8-4.8); LYMPHOCYTES % (AUTO) 6.7 % (20.0-44.0); MEAN CORPUSCULAR HEMOGLOBIN 31 PG (26.0-33.0); MEAN CORPUSCULAR HGB CONC 33 g/dl (31.0-36.0); MEAN CORPUSCULAR VOLUME 93 fL (80-96); MONOCYTES # (AUTO) 0.9 /CMM (0.1-1.30); MONOCYTES % (AUTO) 4.7 % (2.0-12.0); NEUTROPHILS # (AUTO) 16.7 /CMM (1.8-8.9); NEUTROPHILS % (AUTO) 88.6 % (43.0-81.0); PLATELET COUNT (AUTO) 332 /CMM (150-450); RDW COEFFICIENT OF VARIATION 14.6 (11.5-15.0); RED BLOOD CELL COUNT(AUTO) 3.65 MIL/uL (4.5-6.0); WHITE BLOOD COUNT (AUTO) 18.8 K/uL (4.3-11.0)
[2016-12-16 08:00] VITALS: BP 120/61
--- NOTE | 2016-12-16 08:00 | NUR ---
MS RN AM NOTES RECEIVED PT SLEEPING BUT AROUSABLE WITH TACTILE STIMULI.RESPIRATIONS NON LABORED ON ROOM AIR.IV H/L INTACT ON LFA.NO S/S OF HYPO/HYPERGLYCEMIA.REFUSED TO EAT BREAKFAST.WILL TRY LATER.NO S/S OF PAIN OR DISTRESS.CALL LIGHT PLACED WITHIN REACH.
[2016-12-16 08:03] LABS: CALCIUM, SERUM 8.5 mg/dL (8.5-10.1); CREATININE 1.5 mg/dL (0.6-1.3); MAGNESIUM 2.3 mg/dL (1.8-2.4); POTASSIUM 3.9 mmol/L (3.5-5.1)
--- NOTE | 2016-12-16 08:30 | NUR ---
PT ATE 70%BREAKFAST ASSISTED BY THE SITTER.RESPIRATIONS NON LABORED ON O2 AT 3L/MIN VIA N/C.
[2016-12-16] MEDS ORDERED: INSULIN GLARGINE, 100 UNIT/ML CARTRIDGE SQ SCH (09:00)
[2016-12-16] MEDS: methylPREDNISolone SOD SUCC 125 MG/2ML VIAL IV SCH ×3 (09:09→17:10)
[2016-12-16] MEDS: PIOGLITAZONE HCL 15 MG TABLET PO SCH (09:09)
[2016-12-16] MEDS: GUAIFENESIN LA 600 MG TABLET.SA PO SCH ×2 (09:10→21:05)
[2016-12-16] MEDS: DIVALPROEX SODIUM 125 MG TABLET.DR PO SCH ×2 (09:10→21:05)
[2016-12-16] MEDS: ALLOPURINOL 100 MG TABLET PO SCH ×2 (09:10→17:10)
[2016-12-16] MEDS: BENAZEPRIL HCL 20 MG TABLET PO SCH ×2 (09:10→16:36)
[2016-12-16] MEDS: DOXAZOSIN MESYLATE (4 MG) 4 MG TABLET PO SCH (09:10)
[2016-12-16] MEDS: DOCUSATE SODIUM 100 MG CAPSULE PO SCH (09:10)
[2016-12-16] MEDS: PANTOPRAZOLE 40 MG TABLET.DR PO SCH (09:10)
[2016-12-16] MEDS: ASPIRIN EC 81 MG TABLET.DR PO SCH (09:10)
[2016-12-16] MEDS: INSULIN DETEMIR 100 UNIT/ML CARTRIDGE SQ SCH ×2 (09:16→21:15)
[2016-12-16] MEDS: TIMOLOL MAL/DORZOLAM HCL OPHTH 10 ML BOTTLE EACHEYE SCH ×2 (09:20→17:09)
--- NOTE | 2016-12-16 10:50 | NUR ---
PT WAS SLEEPING MOST OF THE TIME AND REFUSED BREAKFAST EARLIER.CHECKED PT'S BLOOD SUGAR 133 AND INSULIN WAS GIVEN EARLIER.FED PT HER BREAKFAST AND CONSUMED 70% BREAKFAST.PT IS CONFUSED AND NEEDS COACHING OFTEN.WITH ASPIRATION PRECAUTIONS.PT IS BREATHING FAST-CHECKED O2 SAT ON ROOM AIR WITH 95%.BEING SEEN BY O.T. AT THIS TIME.CALL LIGHT PLACED WITHIN REACH.WILL CONTINUE TO MONITOR. Addendum: 12/16/16 at 1112 by MARIELA ALEXIS RN DOCUMENTED ON THE WRONG PT-PLS IGNORE ABOVE NOTES
[2016-12-16] MEDS: FUROSEMIDE 40 MG/4 ML VIAL IV SCH (12:40)
[2016-12-16] MEDS: LEVOFLOXACIN 750 MG /D5W 150ML 750 MG in PREMIX 1 EA IV SCH (14:19)
[2016-12-16 16:00] VITALS: BP 102/51
--- NOTE | 2016-12-16 16:55 | NUR ---
BLOOD SUGAR CHECK DONE WITH [address] YAO AND ADMINISTERED 10 UNITS SQ OF HUMULIN R PRIOR TO EATING DINNER AND ADMINISTERING SOLUMEDROL.WILL RECHECK AFTER 1 HR.
--- NOTE | 2016-12-16 17:57 | NUR ---
RECHECKED BLOOD SUGAR WITH 488 RESULT AFTER ADMINISTERING SOLUMEDROL AND EATING HIS DINNER WITH GOOD APPETITE.NOTIFIED DR YAO WITH ORDERS TO CHANGE PRESENT MILD SLIDING SCALE TO AGGRESSIVE SL SCALE AND CARRIED OUT.DR YAO REFUSED TO HAVE THE BLOOD GLUCOSE TO BE REDRAWN BY LAB.WITH ORDERS TO ADMINISTER INSULIN PER AGGRESSIVE SLIDING SCALE.
--- NOTE | 2016-12-16 18:56 | NUR ---
HUMULIN R 20 UNITS SQ GIVEN PER AGGRESSIVE SLIDING SCALE.WILL MONITOR AND ENDORSED.
--- NOTE | 2016-12-16 19:30 | NUR ---
MS RN OPENING NOTES: PATIENT IN BED, AOX3, APPEARS CALM, IN NO DISTRESS. WATCHING TV. ON O2 AT 3 LPM VIA NC, BREATHING APPEARS UNLABORED AT RATE OF 18-20 PER MINUTE, BUT NOTED RALES AT UPPER LUNG SANDS, WITH OCCASIONAL COUGHING. PATIENT IS COOPERATIVE AND ALLOWED SUCTIONING OF ORAL SECRETIONS. PIV OVER L HAND G 22 INTACT AND PATENT TO FLUSH. PROVIDED FOR COMFORT AND SAFETY. BED IN LOWEST AND LOCKED POSITION, SIDE RAILS UP X 3, SITTER AT BEDSIDE. WILL CONT TO MONITOR.
[2016-12-16 20:00] VITALS: BP 90/45
[2016-12-16] MEDS: ATORVASTATIN 10 MG TABLET PO SCH (21:05)
--- NOTE | 2016-12-16 21:10 | NUR ---
RN NOTES: BLOOD SUGAR CHECKED AT 523 MG/DL, IMMEDIATELY RECHECKED, 2ND RESULT WAS 470 MG/DL. ADMINISTERED 10 UNITS REGULAR INSULIN PER PROTOCOL, THEN WILL RECHECK IN 30 MINS TO INFORM MD. PATIENT AOX3, NO CHANGES IN LOC NOTED, COOPERATIVE AT THIS TIME.
--- NOTE | 2016-12-16 21:50 | NUR ---
RN NOTES: BS RECHECKED AT 453 MG/DL. ORDERED FOR STAT GLUCOSE WITH LAB AND CALLED DR DAO. AWAITING FOR CALL BACK.
[2016-12-16] MEDS ORDERED: DEXTROSE 50%-WATER 50 ML DISP.SYRIN IV PRN (22:00)
[2016-12-16] MEDS ORDERED: INSULIN REGULAR, HUMAN 100 UNIT/ML 3 ML VIAL SQ PRN (22:00)
[2016-12-16] MEDS ORDERED: BLOOD SUGAR DIAGNOSTIC 1 EACH STRIP IN SCH (22:00)
[2016-12-16] MEDS ORDERED: *INSULIN REGULAR(HUMULIN R)HUM 100 UNIT/ML VIAL SQ PRN (22:00)
--- NOTE | 2016-12-16 22:20 | NUR ---
RN NOTES: DR GARCIA CALLED BACK, INFORMED MD OF PATIENT'S BLOOD SUGAR RECHECKED AT 523 INITIALLY, THEN 453 AFTER 10 UNITS REGULAR INSULIN WAS GIVEN. ALSO INFORMED HIM THAT LEVEMIR 20 U WAS GIVEN. PER MD, JUST RECHECK AFTER HALF HOUR AGAIN TO MONITOR.
--- NOTE | 2016-12-16 22:21 | NUR ---
RN NOTES (ADDENDUM): ASKED MD IF REPEAT BLOOD SUGAR CHECK NEEDS TO BE REPORTED AGAIN TO DIE MAKER TRIM MD. PER DR GARCIA, NO NEED TO CALL.
[2016-12-16] MEDS: LATANOPROST EYE DROP 0.005% 2.5 ML BOTTLE EACHEYE SCH (22:28)
--- NOTE | 2016-12-16 23:09 | NUR ---
RN NOTES: REPEAT RANDOM BLOOD SUGAR RECHECKED AT 435 MG/DL. PATIENT AOX3, CONVERSING WELL, CALM AND IN NO DISTRESS.
--- NOTE | 2016-12-16 23:43 | NUR ---
RN NOTES: CRITICAL LAB RESULT OF GLUCOSE : 443 MG/DL CALLED IN BY TATYANA OF LABORATORY.
--- NOTE | 2016-12-16 23:53 | NUR ---
RN NOTES: DR SHUKRI DAO IN STATION, INFORMED HIM ABOUT CRITICAL BS AT 443, ALSO INFORMED HIM THAT PT ALREADY RECEIVED 10 UNITS REGULAR INSULIN + 20 UNITS LEVEMIR PLUS HIS 2200 PM DOSE OF GLYBURIDE. PER DR DAO, CHANGE ACCUCHECK TO Q 4 AGGRESSIVE SS, AND GIVE 12 UNITS REGULAR INSULIN SQ NOW.
[2016-12-17] VITALS: BP 102/51
[2016-12-17] MEDS ORDERED: DEXTROSE 50%-WATER 50 ML DISP.SYRIN IV PRN
[2016-12-17] MEDS: BLOOD SUGAR DIAGNOSTIC 1 EACH STRIP IN SCH ×8 (00:13→21:37)
[2016-12-17] MEDS ORDERED: INSULIN REGULAR, HUMAN 100 UNIT/ML 3 ML VIAL SQ ONE (00:30)
[2016-12-17] MEDS: IPRATROPIUM NEB FS 0.5 MG/2.5 ML AMPUL.NEB NEB SCH ×2 (00:55→07:18)
[2016-12-17] MEDS: ALBUTEROL FS 2.5 MG/3 ML VIAL.NEB NEB SCH ×4 (00:55→20:10)
[2016-12-17] MEDS: BRIMONIDINE TARTRATE OPHT SOLN 5 ML BOTTLE EACHEYE SCH ×3 (04:06→21:37)
[2016-12-17] MEDS: INSULIN REGULAR, HUMAN 100 UNIT/ML 3 ML VIAL SQ PRN ×4 (04:14→21:43)
--- NOTE | 2016-12-17 04:18 | NUR ---
RN NOTES: BLOOD SUGAR CHECKED AT 311 MG/DL, ADMINISTERED 16 UNITS INSULIN PER SLIDING SCALE. GAVE LIGHT SNACK OF CRACKERS TO PATIENT. PATIENT ABLE TO EAT SNACK WELL. WILL CONT TO MONITOR.
--- NOTE | 2016-12-17 05:00 | NUR ---
RN NOTES: BLOOD SUGAR CHECKED Q 4 HRS, LAST BLOOD SUGAR CHECKED AT 0400 AM.
--- NOTE | 2016-12-17 06:50 | NUR ---
MS RN CLOSING NOTES: PATIENT IN BED, AOX3, ON O2 AT 3 LPM VIA NC. BREATHING EVEN AND UNLABORED AT RATE OF 20-24 PER MINUTE, STILL WITH COARSE CRACKLES HEARD OVER UPPER LUNG SANDS. PATIENT'S OROPHARYNGEAL SECRETIONS SUCTIONED PRN. WAS CALM AND COOPERATIVE THE WHOLE NIGHT, NO DISTRESS NOTED. PATIENT STILL FOR CLOSE BLOOD SUGAR MONITORING Q 4. INSTRUCTED ON STRICT DIABETIC DIET. PROVIDED FOR COMFORT AND SAFETY. DUE MEDS GIVEN. SITTER AT BEDSIDE. BED IN LOWEST AND LOCKED POSITION, SIDERAILS UP X3. WILL ENDORSE TO AM RN FOR DULCE MARIA.
[2016-12-17 07:33] LABS: BASOPHILS % (AUTO) 0.1 % (0.0-2.0); HEMATOCRIT 31 % (39-51); HEMOGLOBIN 10.4 g/dL (13.5-17.5); LYMPHOCYTES # (AUTO) 1.1 /CMM (0.8-4.8); LYMPHOCYTES % (AUTO) 7.3 % (20.0-44.0); MEAN CORPUSCULAR HEMOGLOBIN 31 PG (26.0-33.0); MEAN CORPUSCULAR HGB CONC 33 g/dl (31.0-36.0); MEAN CORPUSCULAR VOLUME 92 fL (80-96); MONOCYTES # (AUTO) 0.6 /CMM (0.1-1.30); MONOCYTES % (AUTO) 4.3 % (2.0-12.0); NEUTROPHILS # (AUTO) 12.9 /CMM (1.8-8.9); NEUTROPHILS % (AUTO) 88.3 % (43.0-81.0); PLATELET COUNT (AUTO) 315 /CMM (150-450); RDW COEFFICIENT OF VARIATION 14.7 (11.5-15.0); WHITE BLOOD COUNT (AUTO) 14.6 K/uL (4.3-11.0)
[2016-12-17] MEDS ORDERED: IV NS 0.9% 250 ML IV ONE (07:39)
[2016-12-17] MEDS ORDERED: IV SET PRIMARY PUMP SET 1 EA INFUS.SET MC ONE (07:39)
[2016-12-17 07:43] LABS: CALCIUM, SERUM 8.1 mg/dL (8.5-10.1); CREATININE 1.3 mg/dL (0.6-1.3); MAGNESIUM 2.2 mg/dL (1.8-2.4); PHOSPHORUS 3.2 mg/dL (2.5-4.9); POTASSIUM 3.4 mmol/L (3.5-5.1)
[2016-12-17 08:00] VITALS: BP 131/63
--- NOTE | 2016-12-17 08:00 | NUR ---
WELDER PIPE MAKING PT IN BED AOX2 BELARUSIAN SPEAKING, PT NOT ON MONITOR VS STABLE, LUNG SOUNDS DIMINISHED AND RHONCHI, PT HAS DIFFICULT TIME CLEARING SECRETIONS DEEP BREATHING TEACHING DONE, PT ON 3L, ABD SOFT ACTIVE BOWL SOUNDS, TURN AND REPOSTIION IN BED PT ATE 100% OF BREAKFAST, FALL PRECAUTIONS TAKEN CALL LIGHT W/ IN REACH WILL CONTINUE TO MONITOR.
[2016-12-17] MEDS: PIOGLITAZONE HCL 15 MG TABLET PO SCH (08:20)
[2016-12-17] MEDS: methylPREDNISolone SOD SUCC 125 MG/2ML VIAL IV SCH (08:20)
[2016-12-17] MEDS: ALLOPURINOL 100 MG TABLET PO SCH ×2 (08:20→16:41)
[2016-12-17] MEDS: DOCUSATE SODIUM 100 MG CAPSULE PO SCH (08:20)
[2016-12-17] MEDS: DOXAZOSIN MESYLATE (4 MG) 4 MG TABLET PO SCH (08:21)
[2016-12-17] MEDS: ASPIRIN EC 81 MG TABLET.DR PO SCH (08:21)
[2016-12-17] MEDS: PANTOPRAZOLE 40 MG TABLET.DR PO SCH (08:21)
[2016-12-17] MEDS: DIVALPROEX SODIUM 125 MG TABLET.DR PO SCH ×2 (08:21→21:37)
[2016-12-17] MEDS: GUAIFENESIN LA 600 MG TABLET.SA PO SCH ×2 (08:21→21:37)
[2016-12-17] MEDS: TIMOLOL MAL/DORZOLAM HCL OPHTH 10 ML BOTTLE EACHEYE SCH ×2 (08:22→16:41)
[2016-12-17] MEDS: FUROSEMIDE 40 MG/4 ML VIAL IV SCH (08:23)
[2016-12-17] MEDS: glyBURIDE 5 MG TABLET PO SCH ×4 (08:23→21:45)
[2016-12-17] MEDS: BENAZEPRIL HCL 20 MG TABLET PO SCH ×2 (08:24→16:41)
[2016-12-17] MEDS: INSULIN DETEMIR 100 UNIT/ML CARTRIDGE SQ SCH ×2 (08:34→21:44)
[2016-12-17] MEDS ORDERED: POTASSIUM CHLORIDE 20 MEQ TAB.PRT.SR PO ONE (10:00)
[2016-12-17] MEDS: predniSONE 20 MG TABLET PO SCH (10:03)
[2016-12-17] MEDS: LEVOFLOXACIN 750 MG /D5W 150ML 750 MG in PREMIX 1 EA IV SCH (14:22)
[2016-12-17 16:00] VITALS: BP 101/49
--- NOTE | 2016-12-17 18:13 | NUR ---
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
--- NOTE | 2016-12-17 19:50 | NUR ---
RN INITIAL NOTES: RECEIVED REPORT FROM CEFERINO BHATTI. PT ON BED, AWAKE, A/O X2 LUXEMBOURGISH SPEAKING, PT ABLE TO STATE FULL NAME, DATE OF AND PLACE WHERE HE IS. ON 3L VIA NC, RESPIRATION EVEN AND UNLABORED, RHONCHI HEARD UPON AUSCULTATION OF RUL. IV ACCESS PATENT AND FLUSHING WELL, ON HL. BLE OFFLOADED. PT DENIES ANY PAIN OR DISCOMFORT AT THIS TIME. APPEARS CALM AND COMFORTABLE. SITTER AT BED SIDE. SAFETY PRECAUTIONS FOR FALL INITIATED CALL LIGHT IN REACH, WILL CONTINUE TO MONITOR.
[2016-12-17 20:00] VITALS: BP 99/50
[2016-12-17] MEDS: ATORVASTATIN 10 MG TABLET PO SCH (21:38)
[2016-12-17] MEDS: LATANOPROST EYE DROP 0.005% 2.5 ML BOTTLE EACHEYE SCH (21:45)
--- NOTE | 2016-12-17 21:45 | NUR ---
ms rn notes: checked blood sugar and reveal 350, 16units of insulin given per sliding scale, pt on diabetic diet, will continue to monitor
[2016-12-17 22:00] VITALS: BP 100/49
--- NOTE | 2016-12-17 22:10 | NUR ---
MS RN NOTES: OFFERED SNACK, ATE APPLE SAUCE 100%, NO N/V NOTED, NO ASPIRATION NOTED, ASPIRATION PRECAUTION FOLLOWED DURING AND AFTER FEEDING THE PT
[2016-12-18] MEDS: BLOOD SUGAR DIAGNOSTIC 1 EACH STRIP IN SCH ×4 (00:56→12:51)
[2016-12-18] MEDS: INSULIN REGULAR, HUMAN 100 UNIT/ML 3 ML VIAL SQ PRN ×3 (00:57→08:55)
--- NOTE | 2016-12-18 00:58 | NUR ---
MS RN NOTES: CHECKED BLOOD SUGAR AND REVEAL 397, 20UNITS OF INSULIN GIVEN PER SLIDING SCALE, PT ON AGGRESSIVE SLIDING SCALE, ON DIABETIC DIET
[2016-12-18] MEDS: ALBUTEROL FS 2.5 MG/3 ML VIAL.NEB NEB SCH ×3 (01:06→13:52)
[2016-12-18] MEDS: BRIMONIDINE TARTRATE OPHT SOLN 5 ML BOTTLE EACHEYE SCH ×2 (05:01→12:55)
--- NOTE | 2016-12-18 05:04 | NUR ---
MS RN NOTES: CHECKED PT'S BLOOD SUGAR AND REVEAL 366, 20UNITS OF INSULIN GIVEN PER SLIDING SCALE, PT ON Q4HR ACCU CHECK AND ON DIABETIC DIET.
--- NOTE | 2016-12-18 06:44 | NUR ---
MS RN CLOSING NOTES: PT ON BED, REMAINS A/O X2, REMAINS ON 3L VIA NC, DENIES ANY SOB AT THIS TIME, PT ALSO DENIES ANY CHEST PAIN OR DISCOMFORT. PT REMAINS CALM AND COOPERATIVE THROUGHOUT THE SHIFT. LEFT HAND IV ACCESS REMAINS PATENT AND FLUSHING WELL, ON HL. BLE KEPT OFFLOADED. VS REMAINS STABLE, NEEDS ATTENDED. SITTER AT BED SIDE. SAFETY PRECAUTIONS FOR FALL REMAINS ENGAGED. CALL LIGHT IN REACH. WILL ENDORSE TO DAY RN FOR DULCE MARIA.
[2016-12-18 08:00] VITALS: BP 111/59
[2016-12-18 08:07] LABS: EOSINOPHILS % (AUTO) 0.1 % (0.0-6.0); HEMATOCRIT 30 % (39-51); HEMOGLOBIN 9.9 g/dL (13.5-17.5); LYMPHOCYTES # (AUTO) 0.9 /CMM (0.8-4.8); LYMPHOCYTES % (AUTO) 6.6 % (20.0-44.0); MEAN CORPUSCULAR HEMOGLOBIN 30 PG (26.0-33.0); MEAN CORPUSCULAR HGB CONC 33 g/dl (31.0-36.0); MEAN CORPUSCULAR VOLUME 92 fL (80-96); MONOCYTES # (AUTO) 0.7 /CMM (0.1-1.30); MONOCYTES % (AUTO) 5.2 % (2.0-12.0); NEUTROPHILS # (AUTO) 12.1 /CMM (1.8-8.9); NEUTROPHILS % (AUTO) 88.1 % (43.0-81.0); PLATELET COUNT (AUTO) 313 /CMM (150-450); RDW COEFFICIENT OF VARIATION 14.7 (11.5-15.0); RED BLOOD CELL COUNT(AUTO) 3.28 MIL/uL (4.5-6.0); WHITE BLOOD COUNT (AUTO) 13.8 K/uL (4.3-11.0)
[2016-12-18] MEDS: FUROSEMIDE 40 MG/4 ML VIAL IV SCH (08:34)
[2016-12-18] MEDS: DOXAZOSIN MESYLATE (4 MG) 4 MG TABLET PO SCH (08:34)
[2016-12-18] MEDS: predniSONE 20 MG TABLET PO SCH (08:34)
[2016-12-18] MEDS: DOCUSATE SODIUM 100 MG CAPSULE PO SCH (08:35)
[2016-12-18] MEDS: glyBURIDE 5 MG TABLET PO SCH ×2 (08:35→12:51)
[2016-12-18] MEDS: ASPIRIN EC 81 MG TABLET.DR PO SCH (08:35)
[2016-12-18] MEDS: GUAIFENESIN LA 600 MG TABLET.SA PO SCH (08:35)
[2016-12-18] MEDS: PANTOPRAZOLE 40 MG TABLET.DR PO SCH (08:35)
[2016-12-18] MEDS: PIOGLITAZONE HCL 15 MG TABLET PO SCH (08:35)
[2016-12-18] MEDS: DIVALPROEX SODIUM 125 MG TABLET.DR PO SCH (08:35)
[2016-12-18 08:36] VITALS: BP 111/59
[2016-12-18 08:36] LABS: CALCIUM, SERUM 8.2 mg/dL (8.5-10.1); CREATININE 1.5 mg/dL (0.6-1.3); MAGNESIUM 2.3 mg/dL (1.8-2.4); PHOSPHORUS 3.1 mg/dL (2.5-4.9); POTASSIUM 3.7 mmol/L (3.5-5.1)
[2016-12-18] MEDS: BENAZEPRIL HCL 20 MG TABLET PO SCH (08:36)
[2016-12-18] MEDS: TIMOLOL MAL/DORZOLAM HCL OPHTH 10 ML BOTTLE EACHEYE SCH (08:37)
[2016-12-18] MEDS: ALLOPURINOL 100 MG TABLET PO SCH (08:48)
[2016-12-18] MEDS: INSULIN DETEMIR 100 UNIT/ML CARTRIDGE SQ SCH (08:56)
[2016-12-18] MEDS ORDERED: PRED10TA PO (10:19)
[2016-12-18] MEDS ORDERED: FURO40TA5 PO (10:19)
[2016-12-18] MEDS ORDERED: LEVO750T46 PO (10:19)
[2016-12-18] MEDS ORDERED: PRED50TA PO (10:19)
[2016-12-18] MEDS ORDERED: PRED20TA PO ×2 (10:19)
--- NOTE | 2016-12-18 13:02 | NUR ---
BLOOD SUGAR CHECKED, READING 301, 16 UNITS REGULAR INSULIN GIVEN ORDERED PER SLIDING SCALE, VERIFIED WITH KHADIJAH (SECOND RN). PATIENT IS WITH GOOD APPETITE
--- NOTE | 2016-12-18 15:16 | NUR ---
DISCHARGED PATIENT TO [facility], VIA GURNEY, WITH AMBULANCE, IN STABLE CONDITION, NO SOB, WITH OXYGEN IN PLACE DELIVERING 3L/M N/C TOLERATING WELL, VITAL SIGNS WITHIN NORMAL RANGE. DAUGHTER ACCOMPANYING THE PATIENT. DISCHARGE INSTRUCTION GIVEN TO THE PATIENT AND FAMILY MEMBER, VERBALIZED UNDERSTANDING. UNABLE TO GIVE LEVAQUIN ANTIBIOTIC, DO TO NOT DELIVERED FROM THE PHARMACY. REPORT GIVEN TO [facility] ([facility], NOTIFIED TO CONTINUE ANTIBIOTIC PO ORDERED. LEFT WITH ALL HIS BELONGINGS AND DISCHARGE CARE INSTRUCTION PAPERS.
== END 2016-12-18 15:00 | DRG 189 ==
LOC: MED 11:28
PROVIDERS: ADMIT Internal Medicine; ATTEND Internal Medicine
DX: J96.01 Acute respiratory failure with hypoxia (principal); J15.6 Pneumonia due to other Gram-negative bacteria; I50.33 Acute on chronic diastolic (congestive) heart failure; N17.0 Acute kidney failure with tubular necrosis; J44.0 Chronic obstructive pulmonary disease with (acute) lower respiratory infection; E44.0 Moderate protein-calorie malnutrition; I13.0 Hypertensive heart and chronic kidney disease with heart failure and stage 1 through stage 4 chronic kidney disease, or unspecified chronic kidney disease; J44.1 Chronic obstructive pulmonary disease with (acute) exacerbation; F29 Unspecified psychosis not due to a substance or known physiological condition; E11.65 Type 2 diabetes mellitus with hyperglycemia; D64.9 Anemia, unspecified; M10.9 Gout, unspecified; F39 Unspecified mood [affective] disorder; F03.90 Unspecified dementia, unspecified severity, without behavioral disturbance, psychotic disturbance, mood disturbance, and anxiety; E11.22 Type 2 diabetes mellitus with diabetic chronic kidney disease; N18.3 Chronic kidney disease, stage 3 (moderate); Z68.28 Body mass index [BMI] 28.0-28.9, adult
CPT/HCPCS: 36415; 36600; 71010-TC; 80048-TC; 80053-TC; 81000-TC; 82947-TC; 82962-TC; 83735-TC; 84100-TC; 85025-TC; 87040-TC; 87070-TC; 87081-TC; 87086-TC; 94640-TC; 94799-TC; 97001-TC; 97003-TC; 97530-TC; A4216; A4606; J1815; J1940; J1956; J2930; J7050; Z7610